=== PATIENT | male | born 1935 | race Caucasian/White ===

== ENCOUNTER 2019-06-20 13:54 | Emergency (ER) | payer OTHER, MEDICARE, BC ==
[2019-06-20 14:10] VITALS: BP 152/71; PULSE 57; RESP 18; TEMP 97.4
[2019-06-20] MEDS ORDERED: ORPHENADRINE 30 MG/ML 2 ML VIAL IM STA (14:55)
--- NOTE | 2019-06-20 15:34 | XR ---
EXAMINATION TYPE: XR chest 2V DATE OF EXAM: 06/20/2019 COMPARISON: 08/12/2015 HISTORY: Shortness of breath TECHNIQUE: Frontal and lateral views of the chest are obtained. FINDINGS: Scattered senescent parenchymal changes noted. No evidence for infiltrate. No evidence for atelectasis. Heart size is stable. Mediastinal structures are stable and grossly unremarkable. No evidence for hilar prominence. Degenerative changes dorsal spine. IMPRESSION: 1. No evidence for acute pulmonary disease.
--- NOTE | 2019-06-20 15:46 | XR ---
EXAMINATION TYPE: XR shoulder complete LT DATE OF EXAM: 06/20/2019 CLINICAL HISTORY: pain COMPARISON: NONE TECHNIQUE: Three views of the left shoulder are obtained. FINDINGS: There is no acute fracture/dislocation evident. There is moderate left AC joint arthropath y and moderate narrowing left glenohumeral joint space with associated spurring.. The visualized rib s are intact and unremarkable. IMPRESSION: 1. There is no acute fracture or dislocation. ICD 10 NO FRACTURE, INITIAL EVALUATION
--- NOTE | 2019-06-20 15:49 | XR ---
EXAMINATION TYPE: XR spine complete AP and Lat DATE OF EXAM: 06/20/2019 COMPARISON: NONE HISTORY: Pain TECHNIQUE: Three views of the cervical spine are submitted. FINDINGS: The cervical spine is visualized in its entirety from C1 thru the top of T1 level. It is s atisfactory in alignment without evidence of acute fracture or dislocation. The pre-vertebral soft t issue appears within normal limits. The C1-C2 articulation is unremarkable on the open mouth view. ACDF changes noted at C4-5 with fixation plate in place. Moderate multilevel degenerative disc space narrowing. IMPRESSION: No acute fracture or dislocation is seen in the cervical spine. Advanced degenerative ch anges and postoperative change. THORACIC SPINE 2 VIEWS. TECHNIQUE: Frontal, lateral, and swimmer's view of thoracic spine are obtained. COMPARISON: None. FINDINGS: Thoracic spine show satisfactory alignment without evidence of acute fracture or dislocatio n. Vertebral body heights are preserved. [id number] degenerative disc space narrowing and sp ondylosis. Visualized ribs are unremarkable. IMPRESSION: No acute fracture or dislocation is seen in the thoracic spine. LUMBAR SPINE X-RAY: TECHNIQUE: Three views of the lumbar spine are submitted. COMPARISON: None. FINDINGS: There are 5 lumbar type vertebral bodies identified. The lumbar spine shows satisfactory alignment without evidence of acute fracture or dislocation. Vertebral body heights are within normal limits. L3-4 through L5-S1 postoperative changes laminectomy and pedicular screws in place as well a s intervertebral body spacers. Moderate multilevel degenerative disc space narrowing. The overlying s oft tissue appears unremarkable. IMPRESSION: No acute fracture or dislocation is seen in the lumbar spine. Degenerative and postoper ative changes.ICD 10 NO FRACTURE, INITIAL EVALUATION
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
== END 2019-06-20 16:36 | disposition home or self-care (01) ==
LOC: EC 13:54
DX: S39.012A Strain of muscle, fascia and tendon of lower back, initial encounter (principal); S46.912A Strain of unspecified muscle, fascia and tendon at shoulder and upper arm level, left arm, initial encounter; E78.5 Hyperlipidemia, unspecified; I10 Essential (primary) hypertension; M19.90 Unspecified osteoarthritis, unspecified site; Z79.01 Long term (current) use of anticoagulants; Z79.82 Long term (current) use of aspirin; Z79.899 Other long term (current) drug therapy; Z96.653 Presence of artificial knee joint, bilateral; Z87.891 Personal history of nicotine dependence; V49.40XA Driver injured in collision with unspecified motor vehicles in traffic accident, initial encounter; Y92.410 Unspecified street and highway as the place of occurrence of the external cause; Y93.89 Activity, other specified; Z53.20 Procedure and treatment not carried out because of patient's decision for unspecified reasons
CPT/HCPCS: 71046; 72082; 99284

== ENCOUNTER 2023-03-08 14:14 | Inpatient (IN) | payer MEDICARE, BC ==
[2023-03-08] MEDS ORDERED: SODIUM CHLORIDE 0.9% 1,000 ML IV STA (14:42)
--- NOTE | 2023-03-08 14:43 | ED ---
Recheck HPI - General Chief Complaint: Extremity Injury, Lower Stated Complaint: Wound Care Time Seen by Provider: 03/08/23 14:28 Source: patient, EMS, RN notes reviewed, old records reviewed Mode of arrival: EMS Limitations: no limitations - History of Present Illness Initial Comments: This is a 87-year-old male to the emergency department for evaluation. Patient presents today for evaluation of lower extremity pain and swelling. Patient's been disabled for a while now. He states a couple weeks but his history is mildly unclear. Patient is also complaining of ulcers leg ulcers groin ulcer and Botox ulcer. Patient states his is having difficulty taking care of he cannot take care of himself at this point MD Complaint: wound re-check, abnormal lab -: hour(s) Returns Today for: Called Because of Abnormal Lab/Test, persistent/worsening pain related to initial visit Symptoms Since Prior Visit: worsening pain Context: planned re-check Associated Symptoms: none - Related Data Home Medications Medication Instructions Recorded Confirmed Pravastatin Sodium [Pravachol] 40 mg PO HS 08/12/15 03/08/23 ALPRAZolam [Xanax] 0.25 mg PO DAILY PRN 03/08/23 03/08/23 Krill Oil/Hyaluronic/Astaxanth 353 mg PO DAILY 03/08/23 03/08/23 [Megared Joint Care Softgel] Mv-Min/Folic/K1/Lycopen/Lutein 1 tab PO DAILY 03/08/23 03/08/23 [Centrum Silver Men Tablet] Sertraline HCl [Zoloft] 50 mg PO DAILY 03/08/23 03/08/23 Previous Rx's Medication Instructions Recorded Acetaminophen Tab [Tylenol] 650 mg PO Q4HR PRN tab 03/12/23 Enoxaparin [Lovenox] 40 mg SQ DAILY each 03/12/23 Magnesium Hydroxide [Milk of 2,400 mg PO BID PRN ml 03/12/23 Magnesia] Piperacillin-Tazobactam [Zosyn] 3.375 gm IVPB Q8HR 14 Days #42 each 03/12/23 Sennosides [Senokot] 8.6 mg PO BID tab 03/12/23 Tamsulosin [Flomax] 0.4 mg PO PC-BRKFST cap 03/12/23 atenoloL [Tenormin] 25 mg PO DAILY tab 03/12/23 Allergies Allergy/AdvReac Type Severity Reaction Status Date / Time No Known Allergies Allergy Verified 03/08/23 15:51 Review of Systems ROS Statement: Those systems with pertinent positive or pertinent negative responses have been documented in the HPI. ROS Other: All systems not noted in ROS Statement are negative. Past Medical History Past Medical History: Hyperlipidemia, Hypertension, Osteoarthritis (OA) Additional Past Medical History / Comment(s): recent fall @home, had some rib contusions, also finished antibioitc for cough & congestion recently-now resolved History of Any Multi-Drug Resistant Organisms: None Reported Past Surgical History: Back Surgery, Joint Replacement, Orthopedic Surgery Additional Past Surgical History / Comment(s): left knee replaced, arthroscopy knee, 09-05-15 TOTAL RT KNEE REPLACMENT. Past Anesthesia/Blood Transfusion Reactions: Previous Problems w/ Anesthesia, Motion Sickness Additional Past Anesthesia/Blood Transfusion Reaction / Comment(s): slow to wake up Past Psychological History: No Psychological Hx Reported Past Alcohol Use History: Daily Past Drug Use History: None Reported - Past Family History Mother Additional Family Medical History / Comment(s): AT AGE 90 FROM OLD AGE Father Family Medical History: Myocardial Infarction ([place]) Additional Family Medical History / Comment(s): AT AGE 61 FROM [place]. General Exam Limitations: no limitations General appearance: alert, in no apparent distress Head exam: Present: atraumatic, normocephalic, normal inspection Eye exam: Present: normal appearance, PERRL, EOMI. Absent: scleral icterus, conjunctival injection, periorbital swelling ENT exam: Present: normal exam, mucous membranes moist Neck exam: Present: normal inspection. Absent: tenderness, meningismus, lymp hadenopathy Respiratory exam: Present: normal lung sounds bilaterally. Absent: respiratory distress, wheezes, rales, rhonchi, stridor Cardiovascular Exam: Present: regular rate, normal rhythm, normal heart sounds. Absent: systolic murmur, diastolic murmur, rubs, gallop, clicks GI/Abdominal exam: Present: soft, normal bowel sounds. Absent: distended, tenderness, guarding, rebound, rigid Extremities exam: Present: normal inspection, full ROM, normal capillary refill, other (Significant lower extremity edema redness and cellulitis). Absent: tenderness, pedal edema, joint swelling, calf tenderness Back exam: Present: normal inspection Neurological exam: Present: alert, oriented X3, CN II-XII intact Psychiatric exam: Present: normal affect, normal mood Skin exam: Present: warm, dry, intact, normal color. Absent: rash Course Vital Signs 03/08/23 03/08/23 03/08/23 14:15 14:30 15:00 Temperature 98.5 F Pulse Rate 66 62 64 Respiratory 18 17 18 Rate Blood Pressure 166/78 166/78 152/57 O2 Sat by Pulse 97 89 L Oximetry 03/08/23 03/08/23 03/08/23 15:10 15:20 15:30 Temperature Pulse Rate 59 L 62 Respiratory 10 L 36 H 19 Rate Blood Pressure 160/93 160/93 160/93 O2 Sat by Pulse 97 83 L 100 Oximetry 03/08/23 03/08/23 03/08/23 15:40 15:50 18:36 Temperature 97.4 F L Pulse Rate 60 61 80 Respiratory 14 15 18 Rate Blood Pressure 145/56 145/56 175/78 O2 Sat by Pulse 99 90 L 94 L Oximetry 03/08/23 03/08/23 03/09/23 20:00 23:00 01:50 Temperature 98.1 F 98.2 F Pulse Rate 84 55 L 60 Respiratory 18 18 16 Rate Blood Pressure 114/62 140/58 114/65 O2 Sat by Pulse 94 L 96 98 Oximetry 03/09/23 03/09/23 03/09/23 06:03 08:16 09:06 Temperature 97.7 F Pulse Rate 58 L 62 Respiratory 16 18 Rate Blood Pressure 146/64 140/66 O2 Sat by Pulse 95 98 98 Oximetry 03/09/23 03/09/23 03/09/23 11:12 13:00 14:00 Temperature Pulse Rate 62 70 66 Respiratory 18 18 17 Rate Blood Pressure 140/56 138/53 141/69 O2 Sat by Pulse 97 97 97 Oximetry 03/09/23 03/09/23 15:00 16:40 Temperature 98.2 F Pulse Rate 66 67 Respiratory 17 18 Rate Blood Pressure 141/86 136/54 O2 Sat by Pulse 97 94 L Oximetry - Reevaluation(s) Reevaluation #1: 03/08/23 18:18 Medical record is reviewed Reevaluation #2: 03/08/23 18:18 Patient informed results questions answered Reevaluation #3: 03/08/23 18:18 Patient has no improvement in symptoms here in the ER Reevaluation #4: 03/08/23 18:18 Was pt. sent in by a medical professional or institution (COLTON Finnegan, HUMAN RESOURCES PSYCHOLOGIST, urgent care, hospital, or group home...) When possible be specific @ -no Did you speak to anyone other than the patient for history (EMS, parent, family, police, friend...)? What history was obtained from this source @ -no Did you review nursing and triage notes (agree or disagree)? Why? @ -agree Are old charts reviewed (outside hosp., previous admission, EMS record, old EKG, old radiological studies, urgent care reports/EKG's, group home records)? Report findings @ -yes Differential Diagnosis (chest pain, altered mental status, abdominal pain women, abdominal pain men, vaginal bleeding, weakness, fever, dyspnea, syncope, headache, dizziness, GI bleed, back pain, seizure, CVA, palpatations, mental health, musculoskeletal)? @ -prior EKG interpreted by me (3pts min.). @ -yes X-rays interpreted by me (1pt min.). @ -no CT interpreted by me (1pt min.). @ -no U/S interpreted by me (1pt. min.). @ -no What testing was considered but not performed or refused? (CT, X-rays, U/S, labs)? Why? @ -none What meds were considered but not given or refused? Why? @ -none Did you discuss the management of the patient with other professionals (professionals i.e. COLTON Finnegan, HUMAN RESOURCES PSYCHOLOGIST, lab, RT, psych nurse, social sciences lecturer, corporate tax manager, teacher, classifications officer cc/cm, caseworker intake)? Give summary @ -no Was smoking cessation discussed for >3mins.? @ -no Was critical care preformed (if so, how long)? @ -no Were there social determinants of health that impacted care today? How? (Homelessness, low income, unemployed, alcoholism, drug addiction, transportation, low edu. Level, literacy, decrease access to med. care, nursing home, rehab)? @ -none Was there de-escalation of care discussed even if they declined (Discuss DNR or withdrawal of care, Hospice)? DNR status @ -no What co-morbidities impacted this encounter? (DM, HTN, Smoking, COPD, CAD, Cancer, CVA, ARF, Chemo, Hep., AIDS, mental health diagnosis, sleep apnea, morbid obesity)? @ -none Was patient admitted / discharged? Hospital course, mention meds given and route, prescriptions, significant lab abnormalities, going to OR and other pertinent info. @ - 87 male to the emergency department today for evaluation. Patient is safe for evaluation regards to weakness line pain back pain and Botox pain with history of ulcer known ulcers debility and lower extremity edema and cellulitis. Patient symptoms are worsening despite wound fci and antibiotics, patient will be admitted for further evaluation supportive care Admitted Undiagnosed new problem with uncertain prognosis? @ -no Drug Therapy requiring intensive monitoring for toxicity (Heparin, Nitro, Insulin, Cardizem)? @ -no Were any procedures done? @ -no Diagnosis/symptom? @ -Bilateral lower Shorty cellulitis with ulcer Acute, or Chronic, or Acute on Chronic? @ -Acute Uncomplicated (without systemic symptoms) or Complicated (systemic symptoms)? @ -Complicated Side effects of treatment? @ -no Exacerbation, Progression, or Severe Exacerbation? @ -exacerbation Poses a threat to life or bodily function? How? (Chest pain, [place], [place], pneumonia, PE, COPD, DKA, ARF, appy, cholecystitis, CVA, Diverticulitis, Homicidal, Suicidal, threat to staff... and all critical care pts) @ -no Reevaluation #5: 03/08/23 18:18 Differential Weakness: Hypoglycemia, shock, sepsis, hyponatremia, anemia, infection, [place], ETOH, adverse medicine reaction, overdose, stroke, this is not meant to be an all-inclusive list. - Consultations Consultation #1: Spoke with [facility] who agree to admit this patient Medical Decision Making - Medical Decision Making 87 male to the emergency department today for evaluation. Patient is safe for evaluation regards to weakness line pain back pain and Botox pain with history of ulcer known ulcers debility and lower extremity edema and cellulitis. Patient symptoms are worsening despite wound fci and antibiotics, patient will be admitted for further evaluation supportive care - Lab Data Result diagrams: 03/13/23 07:36 03/13/23 07:36 Lab Results 03/08/23 03/08/23 03/08/23 Range/Units 14:44 14:44 14:44 WBC 14.1 H (3.8-10.6) k/uL RBC 3.73 L (4.30-5.90) m/uL Hgb 12.1 L (13.0-17.5) gm/dL Hct 35.3 L (39.0-53.0) % MCV 94.8 (80.0-100.0) fL MCH 32.4 (25.0-35.0) pg MCHC 34.2 (31.0-37.0) g/dL RDW 13.4 (11.5-15.5) % Plt Count 404 (150-450) k/uL MPV 8.3 Absolute Nucleated RBC % Neutrophils % 72 % Lymphocytes % 15 % Monocytes % 7 % Eosinophils % 4 % Basophils % 0 % Neutrophils # 10.2 H (1.3-7.7) k/uL Lymphocytes # 2.2 (1.0-4.8) k/uL Monocytes # 0.9 (0-1.0) k/uL Eosinophils # 0.6 (0-0.7) k/uL Basophils # 0.0 (0-0.2) k/uL NRBC/100 WBC Diff (0.00-0.01) X 10*3/uL PT 10.2 (10.0-12.5) sec INR 0.9 (<1.2) APTT 23.6 (22.0-30.0) sec Sodium 140 (137-145) mmol/L Potassium 5.2 H (3.5-5.1) mmol/L Chloride 109 H (98-107) mmol/L Carbon Dioxide 21 L (22-30) mmol/L Anion Gap 10 mmol/L BUN 90 H (9-20) mg/dL Creatinine 1.25 (0.66-1.25) mg/dL Est GFR (CKD-EPI) (>=60) Est GFR (CKD-EPI)AfAm 59 (>60 ml/min/1.73 sqM) Est GFR (CKD-EPI)NonAf 51 (>60 ml/min/1.73 sqM) BUN/Creatinine Ratio (12.00-20.00) Ratio Glucose 98 (74-99) mg/dL Plasma Lactic Acid Deshawn (0.7-2.0) mmol/L Calcium 8.9 (8.4-10.2) mg/dL Phosphorus 3.7 (2.5-4.5) mg/dL Magnesium 2.8 H (1.6-2.3) mg/dL Total Bilirubin 0.5 (0.2-1.3) mg/dL AST 26 (17-59) U/L ALT 21 (4-49) U/L Alkaline Phosphatase 60 (38-126) U/L Troponin I (0.000-0.034) ng/mL C-Reactive Protein (<1.0) mg/dL Total Protein 6.6 (6.3-8.2) g/dL Albumin 3.5 (3.5-5.0) g/dL Globulin g/dL Albumin/Globulin Ratio 03/08/23 03/08/23 03/08/23 Range/Units 14:44 14:44 14:44 WBC (3.8-10.6) k/uL RBC (4.30-5.90) m/uL Hgb (13.0-17.5) gm/dL Hct (39.0-53.0) % MCV (80.0-100.0) fL MCH (25.0-35.0) pg MCHC (31.0-37.0) g/dL RDW (11.5-15.5) % Plt Count (150-450) k/uL MPV Absolute Nucleated RBC % Neutrophils % % Lymphocytes % % Monocytes % % Eosinophils % % Basophils % % Neutrophils # (1.3-7.7) k/uL Lymphocytes # (1.0-4.8) k/uL Monocytes # (0-1.0) k/uL Eosinophils # (0-0.7) k/uL Basophils # (0-0.2) k/uL NRBC/100 WBC Diff (0.00-0.01) X 10*3/uL PT (10.0-12.5) sec INR (<1.2) APTT (22.0-30.0) sec Sodium (137-145) mmol/L Potassium (3.5-5.1) mmol/L Chloride (98-107) mmol/L Carbon Dioxide (22-30) mmol/L Anion Gap mmol/L BUN (9-20) mg/dL Creatinine (0.66-1.25) mg/dL Est GFR (CKD-EPI) (>=60) Est GFR (CKD-EPI)AfAm (>60 ml/min/1.73 sqM) Est GFR (CKD-EPI)NonAf (>60 ml/min/1.73 sqM) BUN/Creatinine Ratio (12.00-20.00) Ratio Glucose (74-99) mg/dL Plasma Lactic Acid Deshawn 1.2 (0.7-2.0) mmol/L Calcium (8.4-10.2) mg/dL Phosphorus (2.5-4.5) mg/dL Magnesium (1.6-2.3) mg/dL Total Bilirubin (0.2-1.3) mg/dL AST (17-59) U/L ALT (4-49) U/L Alkaline Phosphatase (38-126) U/L Troponin I <0.012 (0.000-0.034) ng/mL C-Reactive Protein 2.2 H (<1.0) mg/dL Total Protein (6.3-8.2) g/dL Albumin (3.5-5.0) g/dL Globulin g/dL Albumin/Globulin Ratio 03/09/23 03/09/23 03/10/23 Range/Units 07:52 08:01 06:00 WBC 10.6 13.72 H (3.8-10.6) k/uL RBC 3.40 L 3.21 L (4.30-5.90) m/uL Hgb 11.2 L 10.2 L (13.0-17.5) gm/dL Hct 33.4 L 31.9 L (39.0-53.0) % MCV 98.2 99.4 H (80.0-100.0) fL MCH 32.9 31.8 (25.0-35.0) pg MCHC 33.5 32.0 (31.0-37.0) g/dL RDW 13.1 14.2 (11.5-15.5) % Plt Count 385 349 (150-450) k/uL MPV 7.6 10.5 Absolute Nucleated RBC 0 % Neutrophils % 71 % Lymphocytes % 14 % Monocytes % 8 % Eosinophils % 6 % Basophils % 0 % Neutrophils # 7.5 (1.3-7.7) k/uL Lymphocytes # 1.4 (1.0-4.8) k/uL Monocytes # 0.8 (0-1.0) k/uL Eosinophils # 0.6 (0-0.7) k/uL Basophils # 0.0 (0-0.2) k/uL NRBC/100 WBC Diff 0 (0.00-0.01) X 10*3/uL PT (10.0-12.5) sec INR (<1.2) APTT (22.0-30.0) sec Sodium 141 (137-145) mmol/L Potassium 4.7 (3.5-5.1) mmol/L Chloride 108 H (98-107) mmol/L Carbon Dioxide 25 (22-30) mmol/L Anion Gap 8 mmol/L BUN 65 H (9-20) mg/dL Creatinine 1.11 (0.66-1.25) mg/dL Est GFR (CKD-EPI) (>=60) Est GFR (CKD-EPI)AfAm 68 (>60 ml/min/1.73 sqM) Est GFR (CKD-EPI)NonAf 59 (>60 ml/min/1.73 sqM) BUN/Creatinine Ratio (12.00-20.00) Ratio Glucose 101 H (74-99) mg/dL Plasma Lactic Acid Deshawn (0.7-2.0) mmol/L Calcium 8.5 (8.4-10.2) mg/dL Phosphorus 4.1 (2.5-4.5) mg/dL Magnesium 2.5 H (1.6-2.3) mg/dL Total Bilirubin 0.5 (0.2-1.3) mg/dL AST 21 (17-59) U/L ALT 20 (4-49) U/L Alkaline Phosphatase 52 (38-126) U/L Troponin I (0.000-0.034) ng/mL C-Reactive Protein (<1.0) mg/dL Total Protein 5.9 L (6.3-8.2) g/dL Albumin 3.0 L (3.5-5.0) g/dL Globulin 2.9 g/dL Albumin/Globulin Ratio 1.0 03/10/23 Range/Units 06:00 WBC (3.8-10.6) k/uL RBC (4.30-5.90) m/uL Hgb (13.0-17.5) gm/dL Hct (39.0-53.0) % MCV (80.0-100.0) fL MCH (25.0-35.0) pg MCHC (31.0-37.0) g/dL RDW (11.5-15.5) % Plt Count (150-450) k/uL MPV Absolute Nucleated RBC % Neutrophils % % Lymphocytes % % Monocytes % % Eosinophils % % Basophils % % Neutrophils # (1.3-7.7) k/uL Lymphocytes # (1.0-4.8) k/uL Monocytes # (0-1.0) k/uL Eosinophils # (0-0.7) k/uL Basophils # (0-0.2) k/uL NRBC/100 WBC Diff (0.00-0.01) X 10*3/uL PT (10.0-12.5) sec INR (<1.2) APTT (22.0-30.0) sec Sodium 145 (137-145) mmol/L Potassium 4.4 (3.5-5.1) mmol/L Chloride 113 H (98-107) mmol/L Carbon Dioxide 21.5 L (22-30) mmol/L Anion Gap 10.50 mmol/L BUN 44.0 H (9-20) mg/dL Creatinine 1.0 (0.66-1.25) mg/dL Est GFR (CKD-EPI) 72 (>=60) Est GFR (CKD-EPI)AfAm (>60 ml/min/1.73 sqM) Est GFR (CKD-EPI)NonAf (>60 ml/min/1.73 sqM) BUN/Creatinine Ratio 44.00 H (12.00-20.00) Ratio Glucose 98 (74-99) mg/dL Plasma Lactic Acid Deshawn (0.7-2.0) mmol/L Calcium 7.9 L (8.4-10.2) mg/dL Phosphorus (2.5-4.5) mg/dL Magnesium 2.1 (1.6-2.3) mg/dL Total Bilirubin (0.2-1.3) mg/dL AST (17-59) U/L ALT (4-49) U/L Alkaline Phosphatase (38-126) U/L Troponin I (0.000-0.034) ng/mL C-Reactive Protein (<1.0) mg/dL Total Protein (6.3-8.2) g/dL Albumin (3.5-5.0) g/dL Globulin g/dL Albumin/Globulin Ratio - EKG Data -: EKG Interpreted by Me (EKG is sinus 64 pO2 29 QRS 153 QTC 435) Disposition Clinical Impression: Bilateral lower leg cellulitis, Sacral decubitus ulcer, Debility, Weakness, Hyperkalemia, Leukocytosis Disposition: ADMITTED IP TO THIS HOSP Condition: Fair Is patient prescribed a controlled substance at d/c from ED?: No Time of Disposition: 18:10
[2023-03-08 15:18] LABS: INR 0.9 (<1.2); Partial Thromboplastin Time 23.6 sec (22.0-30.0); Prothrombin Time 10.2 sec (10.0-12.5)
[2023-03-08 15:26] LABS: ALT 21 U/L (4-49); AST 26 U/L (17-59); African American GFR (CKD) 59 (>60 ml/min/1.73 sqM); Albumin 3.5 g/dL (3.5-5.0); Alkaline Phosphatase 60 U/L (38-126); Anion Gap 10 mmol/L; Blood Urea Nitrogen 90 mg/dL (9-20); Calcium 8.9 mg/dL (8.4-10.2); Carbon Dioxide 21 mmol/L (22-30); Chloride 109 mmol/L (98-107); Glucose 98 mg/dL (74-99); Magnesium 2.8 mg/dL (1.6-2.3); Non-African American GFR(CKD) 51 (>60 ml/min/1.73 sqM); Phosphorus 3.7 mg/dL (2.5-4.5); Potassium 5.2 mmol/L (3.5-5.1); Sodium 140 mmol/L (137-145); Total Bilirubin 0.5 mg/dL (0.2-1.3); Total Protein 6.6 g/dL (6.3-8.2)
[2023-03-08 15:41] LABS: Basophils % (A) 0 %; Eosinophils # (A) 0.6 k/uL (0-0.7); Eosinophils % (A) 4 %; HCT 35.3 % (39.0-53.0); HGB 12.1 gm/dL (13.0-17.5); Lymphocytes # (A) 2.2 k/uL (1.0-4.8); Lymphocytes % (A) 15 %; MCH 32.4 pg (25.0-35.0); MCHC 34.2 g/dL (31.0-37.0); MCV 94.8 fL (80.0-100.0); Mean Platelet Volume 8.3; Monocytes # (A) 0.9 k/uL (0-1.0); Monocytes % (A) 7 %; Neutrophils # (A) 10.2 k/uL (1.3-7.7); Neutrophils % (A) 72 %; Platelet Count 404 k/uL (150-450); RBC 3.73 m/uL (4.30-5.90); RDW 13.4 % (11.5-15.5); WBC 14.1 k/uL (3.8-10.6)
[2023-03-08] MEDS ORDERED: VANCOMYCIN IV PER PHARMACY 1 EACH MISC MISCELLANE PRN (18:14)
[2023-03-08] MEDS ORDERED: VANCOMYCIN 1,750 MG in SODIUM CHLORIDE 0.9% 500 ML 500 ML IVPB STA (18:19)
[2023-03-08] MEDS ORDERED: NALOXONE 0.4 MG/ML 1 ML VIAL IV PRN (18:28)
[2023-03-08] MEDS ORDERED: MORPHINE SULFATE 4 MG/ML SYRINGE IVP STA (18:28)
[2023-03-08] MEDS ORDERED: LORazepam 2 MG/ML INJ IV STA (18:28)
[2023-03-08] MEDS ORDERED: MORPHINE SULFATE 4 MG/ML SYRINGE IV PRN (18:28)
[2023-03-08] MEDS ORDERED: LORazepam 2 MG/ML INJ IV PRN (18:28)
[2023-03-08] MEDS ORDERED: ONDANSETRON 4 MG/2 ML VIAL IVP PRN (18:28)
[2023-03-08] MEDS ORDERED: SODIUM CHLORIDE 0.9% 1,000 ML IV SCH (18:30)
[2023-03-09 09:08] LABS: Basophils % (A) 0 %; Eosinophils # (A) 0.6 k/uL (0-0.7); Eosinophils % (A) 6 %; HCT 33.4 % (39.0-53.0); HGB 11.2 gm/dL (13.0-17.5); Lymphocytes # (A) 1.4 k/uL (1.0-4.8); Lymphocytes % (A) 14 %; MCH 32.9 pg (25.0-35.0); MCHC 33.5 g/dL (31.0-37.0); MCV 98.2 fL (80.0-100.0); Mean Platelet Volume 7.6; Monocytes # (A) 0.8 k/uL (0-1.0); Monocytes % (A) 8 %; Neutrophils # (A) 7.5 k/uL (1.3-7.7); Neutrophils % (A) 71 %; Platelet Count 385 k/uL (150-450); RDW 13.1 % (11.5-15.5); WBC 10.6 k/uL (3.8-10.6)
[2023-03-09 09:20] LABS: ALT 20 U/L (4-49); AST 21 U/L (17-59); African American GFR (CKD) 68 (>60 ml/min/1.73 sqM); Alkaline Phosphatase 52 U/L (38-126); Anion Gap 8 mmol/L; Blood Urea Nitrogen 65 mg/dL (9-20); Calcium 8.5 mg/dL (8.4-10.2); Carbon Dioxide 25 mmol/L (22-30); Chloride 108 mmol/L (98-107); Globulin 2.9 g/dL; Glucose 101 mg/dL (74-99); Magnesium 2.5 mg/dL (1.6-2.3); Non-African American GFR(CKD) 59 (>60 ml/min/1.73 sqM); Phosphorus 4.1 mg/dL (2.5-4.5); Potassium 4.7 mmol/L (3.5-5.1); Sodium 141 mmol/L (137-145); Total Bilirubin 0.5 mg/dL (0.2-1.3); Total Protein 5.9 g/dL (6.3-8.2)
[2023-03-09] MEDS ORDERED: ACETAMINOPHEN TAB 325 MG TAB PO PRN (09:31)
--- NOTE | 2023-03-09 09:40 | P.HPIM ---
History of Present Illness Patient is a pleasant 87-year-old male is admitted for bilateral lower extremity cellulitis and wound infection. Patient has significant cellulitis on the right side with multiple stage II to 3 ulcers extending from the midshin albarado area involving the entire foot on the right side as well as left-sided. Patient is taking Keflex at home without any significant improvement patient was having significant pain and burning sensation. Patient functionality is poor and lives with his . Ordered wound cultures. Patient is presently on vancomycin and ceftriaxone, consulted infectious disease. Patient had elevated serum creati nine of 1.29 patient is on losartan and hydrochlorothiazide at home as well as atenolol for hypertension.. REVIEW OF SYSTEMS: CONSTITUTIONAL: No fever, no malaise, no fatigue. HEENT: No recent visual problems or hearing problems. Denied any sore throat. CARDIOVASCULAR: No chest pain, orthopnea, PND, no palpitations, no syncope. PULMONARY: No shortness of breath, no cough, no hemoptysis. GASTROINTESTINAL: No diarrhea, no nausea, no vomiting, no abdominal pain. NEUROLOGICAL: No headaches, no weakness, no numbness. HEMATOLOGICAL: Denies any bleeding or petechiae. GENITOURINARY: Denies any burning micturition, frequency, or urgency. MUSCULOSKELETAL/RHEUMATOLOGICAL: Denies any joint pain, swelling, or any muscle pain. ENDOCRINE: Denies any polyuria or polydipsia. The rest of the 14-point review of systems is negative. PHYSICAL EXAMINATION: GENERAL: The patient is alert and oriented x3, not in any acute distress. Well developed, well nourished. HEENT: Pupils are round and equally reacting to light. EOMI. No scleral icterus. No conjunctival pallor. Normocephalic, atraumatic. No pharyngeal erythema. No thyromegaly. CARDIOVASCULAR: S1 and S2 present. No murmurs, rubs, or gallops. PULMONARY: Chest is clear to auscultation, no wheezing or crackles. ABDOMEN: Soft, nontender, nondistended, normoactive bowel sounds. No palpable organomegaly. MUSCULOSKELETAL: No joint swelling or deformity. EXTREMITIES: No cyanosis, clubbing, or pedal edema. NEUROLOGICAL: Gross neurological examination did not reveal any focal deficits. SKIN: Cellulitis of the bilateral lower extremities and wounds which are infected as mentioned above Assessment and plan -Bilateral lower extending to wounds with cellulitis: Continue with present medicines vancomycin and Rocephin, infectious disease evaluation wound cultures were obtained. Discontinue morphine for pain and use Tylenol and if needed tramadol for pain. -Acute renal failure secondary to losartan and hydrochlorothiazide her report as it will be held patient was resumed on losartan as his kidney function improved. Patient will be continued on 91 more liter of IV fluids but will be switched to lactated Ringer's -Hyperlipidemia -Hypertension: Hold off on diuretic recent medications will be continued on atenolol -Generalized deconditioning: Physical therapy and occupational therapy evaluation DVT prophylaxis: Lovenox Past Medical History Past Medical History: Hyperlipidemia, Hypertension, Osteoarthritis (OA) Additional Past Medical History / Comment(s): recent fall @home, had some rib contusions, also finished antibioitc for cough & congestion recently-now resolved History of Any Multi-Drug Resistant Organisms: None Reported Past Surgical History: Back Surgery, Joint Replacement, Orthopedic Surgery Additional Past Surgical History / Comment(s): left knee replaced, arthroscopy knee, 09-05-15 TOTAL RT KNEE REPLACMENT. Past Anesthesia/Blood Transfusion Reactions: Previous Problems w/ Anesthesia, Motion Sickness Additional Past Anesthesia/Blood Transfusion Reaction / Comment(s): slow to wake up Past Psychological History: No Psychological Hx Reported Past Alcohol Use History: Daily Past Drug Use History: None Reported - Past Family History Mother Additional Family Medical History / Comment(s): AT AGE 90 FROM OLD AGE Father Family Medical History: Myocardial Infarction ([place]) Additional Family Medical History / Comment(s): AT AGE 61 FROM [place]. Medications and Allergies Home Medications Medication Instructions Recorded Confirmed Type Enalapril/Hydrochlorothiazide 1 tab PO DAILY 08/12/15 03/08/23 History [Vaseretic 5-12.5 mg] Pravastatin Sodium [Pravachol] 40 mg PO HS 08/12/15 03/08/23 History atenoloL [Tenormin] 25 mg PO BID 08/12/15 03/08/23 History ALPRAZolam [Xanax] 0.25 mg PO DAILY PRN 03/08/23 03/08/23 History Cephalexin [Keflex] 500 mg PO Q8HR 03/08/23 03/08/23 History Docusate [Colace] 100 mg PO TID 03/08/23 03/08/23 History Krill Oil/Hyaluronic/Astaxanth 353 mg PO DAILY 03/08/23 03/08/23 History [Megared Joint Care Softgel] Mv-Min/Folic/K1/Lycopen/Lutein 1 tab PO DAILY 03/08/23 03/08/23 History [Centrum Silver Men Tablet] Sertraline HCl [Zoloft] 50 mg PO DAILY 03/08/23 03/08/23 History Allergies Allergy/AdvReac Type Severity Reaction Status Date / Time No Known Allergies Allergy Verified 03/08/23 15:51 Physical Exam Vitals: Vital Signs Temp Pulse Resp BP Pulse Ox 03/09/23 09:06 97.7 F 62 18 140/66 98 03/09/23 08:16 98 03/09/23 06:03 58 L 16 146/64 95 03/09/23 01:50 60 16 114/65 98 03/08/23 23:00 98.2 F 55 L 18 140/58 96 03/08/23 20:00 98.1 F 84 18 114/62 94 L 03/08/23 18:36 97.4 F L 80 18 175/78 94 L 03/08/23 15:50 61 15 145/56 90 L 03/08/23 15:40 60 14 145/56 99 03/08/23 15:30 19 160/93 100 03/08/23 15:20 62 36 H 160/93 83 L 03/08/23 15:10 59 L 10 L 160/93 97 03/08/23 15:00 64 18 152/57 03/08/23 14:30 62 17 166/78 89 L 03/08/23 14:15 98.5 F 66 18 166/78 97 Results CBC & Chem 7: 03/09/23 07:52 03/09/23 08:01 Labs: Abnormal Lab Results - Last 24 Hours (Table) 03/08/23 03/08/23 03/08/23 Range/Units 14:44 14:44 14:44 WBC 14.1 H (3.8-10.6) k/uL RBC 3.73 L (4.30-5.90) m/uL Hgb 12.1 L (13.0-17.5) gm/dL Hct 35.3 L (39.0-53.0) % Neutrophils # 10.2 H (1.3-7.7) k/uL Potassium 5.2 H (3.5-5.1) mmol/L Chloride 109 H (98-107) mmol/L Carbon Dioxide 21 L (22-30) mmol/L BUN 90 H (9-20) mg/dL Glucose (74-99) mg/dL Magnesium 2.8 H (1.6-2.3) mg/dL C-Reactive Protein 2.2 H (<1.0) mg/dL Total Protein (6.3-8.2) g/dL Albumin (3.5-5.0) g/dL 03/09/23 03/09/23 Range/Units 07:52 08:01 WBC (3.8-10.6) k/uL RBC 3.40 L (4.30-5.90) m/uL Hgb 11.2 L (13.0-17.5) gm/dL Hct 33.4 L (39.0-53.0) % Neutrophils # (1.3-7.7) k/uL Potassium (3.5-5.1) mmol/L Chloride 108 H (98-107) mmol/L Carbon Dioxide (22-30) mmol/L BUN 65 H (9-20) mg/dL Glucose 101 H (74-99) mg/dL Magnesium 2.5 H (1.6-2.3) mg/dL C-Reactive Protein (<1.0) mg/dL Total Protein 5.9 L (6.3-8.2) g/dL Albumin 3.0 L (3.5-5.0) g/dL
[2023-03-09] MEDS ORDERED: LACTATED RINGERS 1,000 ML IV SCH (09:45)
[2023-03-09] MEDS: lisinopriL 5 MG TAB PO SCH (11:06)
[2023-03-09] MEDS: DOCUSATE 100 MG CAP PO SCH ×2 (16:05→20:36)
[2023-03-09] MEDS ORDERED: ALPRAZolam 0.25 MG TAB PO STA (17:54)
[2023-03-09] MEDS: atenoloL 25 MG TAB PO SCH (20:36)
[2023-03-09] MEDS: PRAVASTATIN SODIUM 40 MG TAB PO SCH (20:36)
[2023-03-09] MEDS: VANCOMYCIN 1,750 MG in SODIUM CHLORIDE 0.9% 500 ML 500 ML IVPB SCH (20:37)
--- NOTE | 2023-03-09 23:17 | P.CONS ---
History of Present Illness - Reason for Consult Consult date: 03/09/23 Cellulitis Requesting physician: Edyta Long - Chief Complaint Increasing swelling redness and pain to the lower extremity x few days - History of Present Illness Patient is a 87-year-old male with a past medical history significant for hypertension hyperlipidemia osteoarthritis patient was brought into the hospital yesterday afternoon for evaluation of lower extremity pain and swelling apparently the patient symptom has been going on for a few weeks and has developed ulceration to the right anterior leg and left foot area with some purulent drainage patient has been complaining of pain to the lower extremity to be more of a sharp moderate intensity without any radiation did have diffuse swelling and redness and some drainage but no foul-smelling drainage the patient has been evaluated on presentation to the hospital patient was afebrile and no fever; subsequently patient was not hypotensive hypothermic or tachycardic he did have vital of 14.1 with a left shift creatinine was 1.25, liver enzymes are normal blood cultures obtained patient was started on vancomycin and Rocephin infectious disease was consulted for further management of antibiotic therapy Review of Systems Positive point and negatives has been mentioned in the HPI, complete review of systems was performed and all other systems are negative Past Medical History Past Medical History: Hyperlipidemia, Hypertension, Osteoarthritis (OA) Additional Past Medical History / Comment(s): recent fall @home, had some rib contusions, also finished antibioitc for cough & congestion recently-now resolved History of Any Multi-Drug Resistant Organisms: None Reported Past Surgical History: Back Surgery, Joint Replacement, Orthopedic Surgery Additional Past Surgical History / Comment(s): left knee replaced, arthroscopy knee, 09-05-15 TOTAL RT KNEE REPLACMENT. Past Anesthesia/Blood Transfusion Reactions: Previous Problems w/ Anesthesia, Motion Sickness Additional Past Anesthesia/Blood Transfusion Reaction / Comm: slow to wake up Past Psychological History: No Psychological Hx Reported Past Alcohol Use History: Daily Past Drug Use History: None Reported - Past Family History Mother Additional Family Medical History / Comment(s): AT AGE 90 FROM OLD AGE Father Family Medical History: Myocardial Infarction ([place]) Additional Family Medical History / Comment(s): AT AGE 61 FROM [place]. Medications and Allergies Home Medications Medication Instructions Recorded Confirmed Type Enalapril/Hydrochlorothiazide 1 tab PO DAILY 08/12/15 03/08/23 History [Vaseretic 5-12.5 mg] Pravastatin Sodium [Pravachol] 40 mg PO HS 08/12/15 03/08/23 History atenoloL [Tenormin] 25 mg PO BID 08/12/15 03/08/23 History ALPRAZolam [Xanax] 0.25 mg PO DAILY PRN 03/08/23 03/08/23 History Cephalexin [Keflex] 500 mg PO Q8HR 03/08/23 03/08/23 History Docusate [Colace] 100 mg PO TID 03/08/23 03/08/23 History Krill Oil/Hyaluronic/Astaxanth 353 mg PO DAILY 03/08/23 03/08/23 History [Megared Joint Care Softgel] Mv-Min/Folic/K1/Lycopen/Lutein 1 tab PO DAILY 03/08/23 03/08/23 History [Centrum Silver Men Tablet] Sertraline HCl [Zoloft] 50 mg PO DAILY 03/08/23 03/08/23 History Allergies Allergy/AdvReac Type Severity Reaction Status Date / Time No Known Allergies Allergy Verified 03/08/23 15:51 Physical Exam Vitals: Vital Signs Temp Pulse Resp BP Pulse Ox 03/09/23 09:06 97.7 F 62 18 140/66 98 03/09/23 08:16 98 03/09/23 06:03 58 L 16 146/64 95 03/09/23 01:50 60 16 114/65 98 03/08/23 23:00 98.2 F 55 L 18 140/58 96 03/08/23 20:00 98.1 F 84 18 114/62 94 L 03/08/23 18:36 97.4 F L 80 18 175/78 94 L 03/08/23 15:50 61 15 145/56 90 L 03/08/23 15:40 60 14 145/56 99 03/08/23 15:30 19 160/93 100 03/08/23 15:20 62 36 H 160/93 83 L 03/08/23 15:10 59 L 10 L 160/93 97 03/08/23 15:00 64 18 152/57 03/08/23 14:30 62 17 166/78 89 L 03/08/23 14:15 98.5 F 66 18 166/78 97 GENERAL DESCRIPTION: Elderly male lying in bed, no distress. No tachypnea or accessory muscle of respiration use. HEENT: Shows Pallor , no scleral icterus. Oral mucous membrane is dry. No pharyngeal erythema or thrush NECK: Trachea central, no thyromegaly. LUNGS: Unlabored breathing. Clear to auscultation anteriorly. No wheeze or crackle. HEART: S1, S2, regular rate and rhythm. No loud murmur ABDOMEN: Soft, no tenderness , guarding or rigidity, no organomegaly EXTREMITIES: Diffuse swelling redness to bilateral lower extremity he did have a wound to the right leg with some purulent drainage was cultured SKIN: No rash, no masses palpable. Patient did have a stage II sacral pressure ulcer but no slough tissue or surrounding redness NEUROLOGICAL: The patient is awake, alert, oriented x3, mood and affect normal. Results CBC & Chem 7: 03/09/23 07:52 03/09/23 08:01 Labs: Abnormal Lab Results - Last 24 Hours (Table) 03/08/23 03/08/23 03/08/23 Range/Units 14:44 14:44 14:44 WBC 14.1 H (3.8-10.6) k/uL RBC 3.73 L (4.30-5.90) m/uL Hgb 12.1 L (13.0-17.5) gm/dL Hct 35.3 L (39.0-53.0) % Neutrophils # 10.2 H (1.3-7.7) k/uL Potassium 5.2 H (3.5-5.1) mmol/L Chloride 109 H (98-107) mmol/L Carbon Dioxide 21 L (22-30) mmol/L BUN 90 H (9-20) mg/dL Glucose (74-99) mg/dL Magnesium 2.8 H (1.6-2.3) mg/dL C-Reactive Protein 2.2 H (<1.0) mg/dL Total Protein (6.3-8.2) g/dL Albumin (3.5-5.0) g/dL 03/09/23 03/09/23 Range/Units 07:52 08:01 WBC (3.8-10.6) k/uL RBC 3.40 L (4.30-5.90) m/uL Hgb 11.2 L (13.0-17.5) gm/dL Hct 33.4 L (39.0-53.0) % Neutrophils # (1.3-7.7) k/uL Potassium (3.5-5.1) mmol/L Chloride 108 H (98-107) mmol/L Carbon Dioxide (22-30) mmol/L BUN 65 H (9-20) mg/dL Glucose 101 H (74-99) mg/dL Magnesium 2.5 H (1.6-2.3) mg/dL C-Reactive Protein (<1.0) mg/dL Total Protein 5.9 L (6.3-8.2) g/dL Albumin 3.0 L (3.5-5.0) g/dL Assessment and Plan Plan: 1patient with bilateral lower extremity cellulitis in this patient with an area of purulent drainage which has been cultured likely from gram-positive skin martin gram-negative infection less likely but not entirely excluded 2-patient did have a stage II sacral pressure ulcer but no cellulitis 3-patient new with the vancomycin pharmacy to dose while watching kidney fu nction closely and Rocephin while waiting for the culture to finalize 4-local wound care to the sacral wound with the skin protective cream and keep the area of the pressure We will follow on clinical condition and cultures to further adjust medication if needed Thank you for this consultation we will follow the patient along with you Dictation was produced using [employer] dictation software. please excuse any grammatical, word or spelling errors. Time with Patient: Greater than 30
[2023-03-10] MEDS: traMADol 50 MG TAB PO PRN (07:55)
[2023-03-10] MEDS: ENOXAPARIN 40 MG/0.4 ML SYRINGE SQ SCH (08:19)
[2023-03-10] MEDS: atenoloL 25 MG TAB PO SCH ×2 (08:19→20:28)
[2023-03-10] MEDS: SERTRALINE 50 MG TAB PO SCH (08:19)
[2023-03-10] MEDS: DOCUSATE 100 MG CAP PO SCH ×3 (08:19→20:28)
[2023-03-10] MEDS: lisinopriL 5 MG TAB PO SCH (08:21)
[2023-03-10 10:55] LABS: HCT 31.9 % (39.6-50.0); HGB 10.2 d/dL (13.0-17.0); MCH 31.8 pg (27.0-32.0); MCV 99.4 FL (80.0-97.0); Mean Platelet Volume 10.5 FL (9.5-12.2); NRBC Per 100 WBC 0 X 10*3/uL (0.00-0.01); Platelet Count 349 X 10*3/uL (140-440); RBC 3.21 X 10*6/uL (4.40-5.60); RDW 14.2 % (11.5-14.5); WBC 13.72 X 10*3/uL (4.50-10.00)
[2023-03-10 11:13] LABS: Calcium 7.9 mg/dL (8.7-10.3); Carbon Dioxide 21.5 mmol/L (21.6-31.8); Chloride 113 mmol/L (96-109); Glucose 98 mg/dL (70-110); Magnesium 2.1 mg/dL (1.5-2.4); Potassium 4.4 mmol/L (3.5-5.5); Sodium 145 mmol/L (135-145)
--- NOTE | 2023-03-10 12:28 | P.PN ---
Subjective Progress Note Date: 03/10/23 Principal diagnosis: Bilateral lower extremity cellulitis Patient is a 87-year-old male with a past medical history significant for hypertension hyperlipidemia osteoarthritis patient was brought into the hospital yesterday afternoon for evaluation of lower extremity pain and swelling that has been getting worse a few patient been diagnosed with a bilateral lower extremity cellulitis and also have a stage II sacral pressure ulcer On today's evaluation that is 03/10/2023, the patient remains to be afebrile the patient is breathing comfortably on room air, the patient denies chest pain, shortness of breath or cough, patient denies nausea/vomiting , no diarrhea and no abdominal pain, still complaining of pain to bilateral upper extremity but no worsening. Patient did have WBC 13.72 creatinine 1.0 Objective - Vital Signs Vital signs: Vital Signs Temp 98.3 F 03/10/23 07:02 Pulse 54 L 03/10/23 07:02 Resp 18 03/10/23 07:02 BP 124/65 03/10/23 07:02 Pulse Ox 95 03/10/23 07:02 FiO2 Intake & Output 03/09/23 03/10/23 03/10/23 18:59 06:59 18:59 Intake Total 75 Output Total 500 300 Balance 75 -500 -300 Weight 103.419 kg Intake: Intake, IV Titration 75 Amount Sodium Chloride 0.9% 1, 75 000 ml @ 75 mls/hr IV . [id number] [facility] Rx#:[id number] Output: Urine 500 300 Other: Voiding Method External Catheter External Catheter External Catheter - Exam GENERAL DESCRIPTION: An elderly male lying in bed in no distress RESPIRATORY SYSTEM: Unlabored breathing , decreased breath sounds at bases HEART: S1 S2 regular rate and rhythm , ABDOMEN: Soft , no tenderness EXTREMITIES: Diffuse swelling to lower extremity with some redness - Labs CBC & Chem 7: 03/10/23 06:00 03/10/23 06:00 Labs: Abnormal Lab Results - Last 24 Hours (Table) 03/10/23 03/10/23 Range/Units 06:00 06:00 WBC 13.72 H (4.50-10.00) X 10*3/uL RBC 3.21 L (4.40-5.60) X 10*6/uL Hgb 10.2 L (13.0-17.0) d/dL Hct 31.9 L (39.6-50.0) % MCV 99.4 H (80.0-97.0) FL Chloride 113 H (96-109) mmol/L Carbon Dioxide 21.5 L (21.6-31.8) mmol/L BUN 44.0 H (9.0-27.0) mg/dL BUN/Creatinine Ratio 44.00 H (12.00-20.00) Ratio Calcium 7.9 L (8.7-10.3) mg/dL Microbiology - Last 24 Hours (Table) 03/09/23 11:26 Gram Stain - Preliminary Foot - Left Wound Culture - Preliminary Gram Neg Bacilli Gram Neg Bacilli#2 Group D Enterococcus 03/08/23 14:45 Blood Culture - Preliminary Blood 03/08/23 14:30 Blood Culture - Preliminary Blood Assessment and Plan (1) Stage II pressure ulcer of sacral region Current Visit: Yes Status: Acute Code(s): L89.152 - PRESSURE ULCER OF SACRAL REGION, STAGE 2 SNOMED Code(s): 54583144392414 (2) Bilateral lower leg cellulitis Current Visit: Yes Status: Acute Code(s): L03.116 - CELLULITIS OF LEFT LOWER LIMB; L03.115 - CELLULITIS OF RIGHT LOWER LIMB SNOMED Code(s): 606613942 Plan: 1patient with bilateral lower extremity cellulitis in this patient with an area of purulent drainage which has been cultured likely from gram-positive skin martin gram-negative infection less likely but not entirely excluded 2-patient did have a stage II sacral pressure ulcer but no cellulitis 3--local wound care to the sacral wound with the skin protective cream and keep the area ofF the pressure 4-patient to continue with the vancomycin and Rocephin while waiting for the cultures to finalize Dictation was produced using [employer] dictation software. please excuse any grammatical, word or spelling errors. Time with Patient: Less than 30
[2023-03-10 13:26] VITALS: BMI 31.8
[2023-03-10] MEDS: VANCOMYCIN 1,750 MG in SODIUM CHLORIDE 0.9% 500 ML 500 ML IVPB SCH (20:28)
[2023-03-10] MEDS: PRAVASTATIN SODIUM 40 MG TAB PO SCH (20:28)
[2023-03-11 06:08] LABS: Basophils % (A) 0 %; Eosinophils # (A) 1.1 k/uL (0-0.7); Eosinophils % (A) 8 %; HCT 32.9 % (39.0-53.0); HGB 10.8 gm/dL (13.0-17.5); Lymphocytes # (A) 1.7 k/uL (1.0-4.8); Lymphocytes % (A) 13 %; MCH 32.1 pg (25.0-35.0); MCHC 32.9 g/dL (31.0-37.0); MCV 97.6 fL (80.0-100.0); Mean Platelet Volume 8.1; Monocytes # (A) 0.9 k/uL (0-1.0); Monocytes % (A) 7 %; Neutrophils # (A) 9.4 k/uL (1.3-7.7); Neutrophils % (A) 71 %; Platelet Count 355 k/uL (150-450); RBC 3.37 m/uL (4.30-5.90); RDW 13.3 % (11.5-15.5); WBC 13.3 k/uL (3.8-10.6)
[2023-03-11 06:10] LABS: African American GFR (CKD) 78 (>60 ml/min/1.73 sqM); Non-African American GFR(CKD) 67 (>60 ml/min/1.73 sqM)
[2023-03-11] MEDS ORDERED: ALPRAZolam 0.25 MG TAB PO PRN (06:35)
--- NOTE | 2023-03-11 07:13 | P.PN ---
Subjective Progress Note Date: 03/10/23 Patient is a pleasant 87-year-old male is admitted for bilateral lower extremity cellulitis and wound infection. Patient has significant cellulitis on the right side with multiple stage II to 3 ulcers extending from the midshin albarado area involving the entire foot on the right side as well as left-sided. Patient is taking Keflex at home without any significant improvement patient was having significant pain and burning sensation. Patient functionality is poor and lives with his . Ordered wound cultures. Patient is presently on vancomycin and ceftriaxone, consulted infectious disease. Patient had elevated serum creatinine of 1.29 patient is on losartan and hydrochlorothiazide at home as well as atenolol for hypertension.. 03/10/2023 Patient is seen and evaluated in follow-up maintained on IV antibiotics with infectious disease following. Patient continues to have swelling of bilateral lower extremities although significantly improved and continues with multiple wounds and maceration noted of the skin. Continue local wound care and infectious disease following waiting on finalized cultures to determine discharge and Plavix. Will have physical therapy evaluate the patient and patient will need rehab on discharge. Patient continues with significant weakness and would benefit from ECF for continued strength and mobility. Patient is currently afebrile with no reported chest pain or shortness of breath. Patient is tolerating diet and denies any nausea or vomiting. Review of systems: Constitutional: No reports of fatigue, fever, or chills Cardiovascular: No reports of chest pain or palpitations Respiratory: No reports of shortness of breath or cough GI: No reports of nausea, vomiting, or diarrhea : No reports of dysuria or retention Neurovascular: reports of weakness and continued bilateral lower extremity tenderness and swelling All medications have been reviewed PHYSICAL EXAMINATION: GENERAL: The patient is alert and oriented x3, not in any acute distress. Well developed, well nourished. Elderly-appearing, obese HEENT: Pupils are round and equally reacting to light. EOMI. No scleral icterus. No conjunctival pallor. Normocephalic, atraumatic. No pharyngeal erythema. No thyromegaly. CARDIOVASCULAR: S1 and S2 present. No murmurs, rubs, or gallops. PULMONARY: Chest is clear to auscultation, no wheezing or crackles. ABDOMEN: Soft, nontender, nondistended, normoactive bowel sounds. No palpable organomegaly. MUSCULOSKELETAL: No joint swelling or deformity. EXTREMITIES: No cyanosis, clubbing, or pedal edema. NEUROLOGICAL: Gross neurological examination did not reveal any focal deficits. Diffusely weak SKIN: Cellulitis of the bilateral lower extremities and wounds which are infected as mentioned above Assessment: -Bilateral lower extremity wounds with cellulitis, present on admission -Acute renal failure secondary to losartan and hydrochlorothiazide -Hyperlipidemia -Hypertension -Generalized deconditioning with gait dysfunction -Stage II sacral pressure ulcer, present on admission -Obesity with a BMI of 31.8 -GI prophylaxis -DVT prophylaxis: Lovenox -Full code Plan: Patient is continued on antibiotics with infectious disease following. Patient awaiting cultures to determine discharge antibiotics and may possibly require IV antibiotics on discharge Patient was evaluated by physical therapy recommending rehab and patient is agreeable case management following working on ECF Continue with local wound care bilateral lower extremities and elevating while at rest. Continue local wound care to the sacral area and frequent offloading Encouraged to increase activity as tolerated as well as oral intake Will follow-up on repeat labs Awaiting finalized cultures to discuss further with infectious disease and case management about discharge planning The impression and plan of care has been dictated by Silva Beck, Nurse Practitioner as directed. Dr. Mercedes MD I have performed a history and examination and MDM of this patient, discussed the same with the dictator, and agree with the dictator's assessment and plan as written ,documented as a scribe. Based on total visit time, I have performed more than 50% of the visit. Objective - Vital Signs Vital signs: Vital Signs Temp 98.3 F 03/10/23 07:02 Pulse 54 L 03/10/23 07:02 Resp 18 03/10/23 07:02 BP 124/65 03/10/23 07:02 Pulse Ox 95 03/10/23 07:02 FiO2 Intake & Output 03/09/23 03/10/23 03/10/23 18:59 06:59 18:59 Intake Total 75 Output Total 500 Balance 75 -500 Weight 103.419 kg Intake: Intake, IV Titration 75 Amount Sodium Chloride 0.9% 1, 75 000 ml @ 75 mls/hr IV . [id number] [facility] Rx#:[id number] Output: Urine 500 Other: Voiding Method External Catheter External Catheter - Labs CBC & Chem 7: 03/11/23 05:14 03/11/23 06:00 Labs: Microbiology - Last 24 Hours (Table) 03/09/23 11:26 Gram Stain - Preliminary Foot - Left 03/08/23 14:45 Blood Culture - Preliminary Blood 03/08/23 14:30 Blood Culture - Preliminary Blood
[2023-03-11] MEDS: lisinopriL 5 MG TAB PO SCH (08:24)
[2023-03-11] MEDS: ENOXAPARIN 40 MG/0.4 ML SYRINGE SQ SCH (08:25)
[2023-03-11] MEDS: SERTRALINE 50 MG TAB PO SCH (08:25)
[2023-03-11] MEDS: DOCUSATE 100 MG CAP PO SCH ×3 (08:25→20:39)
[2023-03-11 09:07] LABS: Blood Urea Nitrogen 38.5 mg/dL (9.0-27.0); Calcium 8.2 mg/dL (8.7-10.3); Carbon Dioxide 22.6 mmol/L (21.6-31.8); Chloride 112 mmol/L (96-109); Glucose 92 mg/dL (70-110); Potassium 4.4 mmol/L (3.5-5.5); Sodium 144 mmol/L (135-145)
[2023-03-11] MEDS: atenoloL 25 MG TAB PO SCH ×2 (09:52→20:39)
[2023-03-11] MEDS: traMADol 50 MG TAB PO PRN (09:52)
[2023-03-11] MEDS: TAMSULOSIN 0.4 MG CAP.ER.24H PO SCH (13:02)
[2023-03-11] MEDS: KETOROLAC 15 MG/ML 1 ML VIAL IVP SCH ×3 (13:35→23:58)
--- NOTE | 2023-03-11 16:15 | P.PN ---
Subjective Progress Note Date: 03/11/23 Principal diagnosis: Bilateral lower extremity cellulitis Patient is a 87-year-old male with a past medical history significant for hypertension hyperlipidemia osteoarthritis patient was brought into the hospital yesterday afternoon for evaluation of lower extremity pain and swelling that has been getting worse a few patient been diagnosed with a bilateral lower extremity cellulitis and also have a stage II sacral pressure ulcer On today's evaluation that is 03/11/2023, the patient denies any fever or any chills, the patient is breathing comfortably on room air and no need for supplemental oxygen , the patient denies chest pain or cough, patient denies abdominal pain, no nausea/vomiting and no diarrhea has been reported, the patient pain to bilateral upper extremity has slightly decreased Patient did have WBC is 13.3, creatinine 1.0 Objective - Vital Signs Vital signs: Vital Signs Temp 97.5 F L 03/11/23 13:01 Pulse 64 03/11/23 13:01 Resp 18 03/11/23 13:01 BP 137/70 03/11/23 13:01 Pulse Ox 96 03/11/23 13:01 FiO2 Intake & Output 03/10/23 03/11/23 03/11/23 18:59 06:59 18:59 Intake Total 550 Output Total 300 550 Balance 250 -550 Weight 103.419 kg Intake: Intake, IV Titration 550 Amount Vancomycin 1,750 mg In 500 Sodium Chloride 0.9% 500 ml 500 ml @ 167 mls/hr IVPB Q24H [facility] Rx#: [id number] cefTRIAXone 2 gm In 50 Sodium Chloride 0.9% 50 ml @ 100 mls/hr IVPB Q24HR [facility] Rx#:[id number] Output: Urine 300 550 Straight 550 Other: Voiding Method External Catheter External Catheter Diaper - Exam GENERAL DESCRIPTION: An elderly male lying in bed in no distress RESPIRATORY SYSTEM: Unlabored breathing , decreased breath sounds at bases HEART: S1 S2 regular rate and rhythm , ABDOMEN: Soft , no tenderness EXTREMITIES: Diffuse swelling to lower extremity with some redness - Labs CBC & Chem 7: 03/11/23 05:14 03/11/23 06:00 Labs: Abnormal Lab Results - Last 24 Hours (Table) 03/11/23 03/11/23 Range/Units 05:14 05:14 WBC 13.3 H (3.8-10.6) k/uL RBC 3.37 L (4.30-5.90) m/uL Hgb 10.8 L (13.0-17.5) gm/dL Hct 32.9 L (39.0-53.0) % Neutrophils # 9.4 H (1.3-7.7) k/uL Eosinophils # 1.1 H (0-0.7) k/uL Chloride 112 H (96-109) mmol/L BUN 38.5 H (9.0-27.0) mg/dL BUN/Creatinine Ratio 38.50 H (12.00-20.00) Ratio Calcium 8.2 L (8.7-10.3) mg/dL Microbiology - Last 24 Hours (Table) 03/09/23 11:26 Anaerobic Culture - Preliminary Foot - Left 03/09/23 11:26 Gram Stain - Final Foot - Left Wound Culture - Final Citrobacter braakii Pseudomonas aeruginosa Enterococcus faecalis 03/08/23 14:45 Blood Culture - Preliminary Blood 03/08/23 14:30 Blood Culture - Preliminary Blood Assessment and Plan (1) Stage II pressure ulcer of sacral region Current Visit: Yes Status: Acute Code(s): L89.152 - PRESSURE ULCER OF SACRAL REGION, STAGE 2 SNOMED Code(s): 79168495237901 (2) Bilateral lower leg cellulitis Current Visit: Yes Status: Acute Code(s): L03.116 - CELLULITIS OF LEFT LOWER LIMB; L03.115 - CELLULITIS OF RIGHT LOWER LIMB SNOMED Code(s): 219529215 Plan: 1patient with bilateral lower extremity cellulitis in this patient with an area of purulent drainage which has been cultured likely from gram-positive skin martni gram-negative infection less likely but not entirely excluded 2-patient did have a stage II sacral pressure ulcer but no cellulitis 3--local wound care to the sacral wound with the skin protective cream and keep the area ofF the pressure 4-patient local culture did grew Citrobacter pseudomonas and Enterococcus faecalis 5we will discontinue vancomycin and Rocephin and start the patient on Zosyn Dictation was produced using [employer] dictation software. please excuse any grammatical, word or spelling errors. Time with Patient: Less than 30
[2023-03-11] MEDS: PIPERACILLIN-TAZOBACTAM 3.375 GM in SODIUM CHLORIDE 0.9% 100 ML IVPB SCH (16:59)
[2023-03-11] MEDS ORDERED: VANCOMYCIN TROUGH DUE 1 EACH MISC MISCELLANE ONE (19:00)
--- NOTE | 2023-03-11 20:38 | P.PN ---
Subjective Progress Note Date: 03/11/23 Patient is a pleasant 87-year-old male is admitted for bilateral lower extremity cellulitis and wound infection. Patient has significant cellulitis on the right side with multiple stage II to 3 ulcers extending from the midshin albarado area involving the entire foot on the right side as well as left-sided. Patient is taking Keflex at home without any significant improvement patient was having significant pain and burning sensation. Patient functionality is poor and lives with his . Ordered wound cultures. Patient is presently on vancomycin and ceftriaxone, consulted infectious disease. Patient had elevated serum creatinine of 1.29 patient is on losartan and hydrochlorothiazide at home as well as atenolol for hypertension.. 03/10/2023 Patient is seen and evaluated in follow-up maintained on IV antibiotics with infectious disease following. Patient continues to have swelling of bilateral lower extremities although significantly improved and continues with multiple wounds and maceration noted of the skin. Continue local wound care and infectious disease following waiting on finalized cultures to determine discharge and Plavix. Will have physical therapy evaluate the patient and patient will need rehab on discharge. Patient continues with significant weakness and would benefit from ECF for continued strength and mobility. Patient is currently afebrile with no reported chest pain or shortness of breath. Patient is tolerating diet and denies any nausea or vomiting. 03/11/2023 Patient is seen and evaluated in follow-up today awaiting wound cultures with infectious disease following maintained on ceftriaxone and vancomycin. Patient to continue with local wound care and elevating the lower extremity swelling rest. Patient reports his pain is significant and will add some Toradol. Plan is for ECF and will require insurance authorization. Patient will also require a 3 night hospitalization stay according to Medicare guidelines and will be able to discharge on Wednesday. [facility] will be able to accept on Wednesday and arrangements will be 8. Patient is currently afebrile with no reports of chest pain or shortness of breath. Patient did have some mild retention will initiate Flomax and recommend straight cath. Monitor for post void residuals and is continuing to retain will insert indwelling Colmenares catheter. Review of systems: Constitutional: No reports of fatigue, fever, or chills Cardiovascular: No reports of chest pain or palpitations Respiratory: No reports of shortness of breath or cough GI: No reports of nausea, vomiting, or diarrhea : No reports of dysuria or retention Neurovascular: reports of weakness and continued bilateral lower extremity tenderness and also buttock pain All medications have been reviewed PHYSICAL EXAMINATION: GENERAL: The patient is alert and oriented x3, not in any acute distress. Well developed, well nourished. Elderly-appearing, obese HEENT: Pupils are round and equally reacting to light. EOMI. No scleral icterus. No conjunctival pallor. Normocephalic, atraumatic. No pharyngeal erythema. No thyromegaly. CARDIOVASCULAR: S1 and S2 present. No murmurs, rubs, or gallops. PULMONARY: Chest is clear to auscultation, no wheezing or crackles. ABDOMEN: Soft, nontender, nondistended, normoactive bowel sounds. No palpable organomegaly. MUSCULOSKELETAL: No joint swelling or deformity. EXTREMITIES: No cyanosis, clubbing, or pedal edema. NEUROLOGICAL: Gross neurological examination did not reveal any focal deficits. Diffusely weak SKIN: Cellulitis of the bilateral lower extremities and wounds which are infected as mentioned above Assessment: -Bilateral lower extremity wounds with cellulitis, present on admission with culture showing Citrobacter, Pseudomonas and enterococcus -Acute renal failure secondary to losartan and hydrochlorothiazide -Hyperlipidemia -Hypertension -Generalized deconditioning with gait dysfunction -Stage II sacral pressure ulcer, present on admission -Obesity with a BMI of 31.8 -GI prophylaxis -DVT prophylaxis: Lovenox -Full code Plan: Patient is continued on antibiotics with infectious disease following. Culture showing Citrobacter, Pseudomonas, enterococcus and IV antibiotics being adjusted. Patient will require IV antibiotics on discharge and will discuss further patient will require a midline for PICC line for discharge. Patient was evaluated by physical therapy recommending rehab and patient is agreeable case management following working on ECF. Patient will require 3 night hospitalization according to Medicare guidelines and unable to discharge until Wednesday Continue with local wound care bilateral lower extremities and elevating while at rest. Continue local wound care to the sacral area and frequent offloading Encouraged to increase activity as tolerated as well as oral intake Patient having some mild retention and will initiate Flomax and continue with protocol and straight cath and is continuing to retain then will insert indwelli ng Colmenares catheter. Will follow-up on repeat labs The impression and plan of care has been dictated by Silva Beck, Nurse Practitioner as directed. Dr. Mercedes MD I have performed a history and examination and MDM of this patient, discussed the same with the dictator, and agree with the dictator's assessment and plan as written ,documented as a scribe. Based on total visit time, I have performed more than 50% of the visit. Objective - Vital Signs Vital signs: Vital Signs Temp 98.1 F 03/11/23 07:39 Pulse 54 L 03/11/23 07:39 Resp 20 03/11/23 07:39 BP 122/59 03/11/23 07:39 Pulse Ox 96 03/11/23 07:39 FiO2 Intake & Output 03/10/23 03/11/23 03/11/23 18:59 06:59 18:59 Intake Total 550 Output Total 300 Balance 250 Weight 103.419 kg Intake: Intake, IV Titration 550 Amount Vancomycin 1,750 mg In 500 Sodium Chloride 0.9% 500 ml 500 ml @ 167 mls/hr IVPB Q24H [facility] Rx#: [id number] cefTRIAXone 2 gm In 50 Sodium Chloride 0.9% 50 ml @ 100 mls/hr IVPB Q24HR [facility] Rx#:[id number] Output: Urine 300 Other: Voiding Method External Catheter External Catheter - Labs CBC & Chem 7: 03/11/23 05:14 03/11/23 06:00 Labs: Abnormal Lab Results - Last 24 Hours (Table) 03/10/23 03/10/23 03/11/23 Range/Units 06:00 06:00 05:14 WBC 13.72 H 13.3 H (4.50-10.00) X 10*3/uL RBC 3.21 L 3.37 L (4.40-5.60) X 10*6/uL Hgb 10.2 L 10.8 L (13.0-17.0) d/dL Hct 31.9 L 32.9 L (39.6-50.0) % MCV 99.4 H (80.0-97.0) FL Neutrophils # 9.4 H (1.3-7.7) k/uL Eosinophils # 1.1 H (0-0.7) k/uL Chloride 113 H (96-109) mmol/L Carbon Dioxide 21.5 L (21.6-31.8) mmol/L BUN 44.0 H (9.0-27.0) mg/dL BUN/Creatinine Ratio 44.00 H (12.00-20.00) Ratio Calcium 7.9 L (8.7-10.3) mg/dL 03/11/23 Range/Units 05:14 WBC (4.50-10.00) X 10*3/uL RBC (4.40-5.60) X 10*6/uL Hgb (13.0-17.0) d/dL Hct (39.6-50.0) % MCV (80.0-97.0) FL Neutrophils # (1.3-7.7) k/uL Eosinophils # (0-0.7) k/uL Chloride 112 H (96-109) mmol/L Carbon Dioxide (21.6-31.8) mmol/L BUN 38.5 H (9.0-27.0) mg/dL BUN/Creatinine Ratio 38.50 H (12.00-20.00) Ratio Calcium 8.2 L (8.7-10.3) mg/dL Microbiology - Last 24 Hours (Table) 03/08/23 14:45 Blood Culture - Preliminary Blood 03/08/23 14:30 Blood Culture - Preliminary Blood 03/09/23 11:26 Gram Stain - Preliminary Foot - Left Wound Culture - Preliminary Gram Neg Bacilli Gram Neg Bacilli#2 Group D Enterococcus
[2023-03-11] MEDS: PRAVASTATIN SODIUM 40 MG TAB PO SCH (20:39)
[2023-03-12] MEDS: PIPERACILLIN-TAZOBACTAM 3.375 GM in SODIUM CHLORIDE 0.9% 100 ML IVPB SCH ×3 (00:10→16:10)
[2023-03-12] MEDS: ALPRAZolam 0.25 MG TAB PO PRN ×2 (04:54→17:52)
[2023-03-12] MEDS: KETOROLAC 15 MG/ML 1 ML VIAL IVP SCH ×3 (05:49→18:13)
[2023-03-12 06:07] LABS: African American GFR (CKD) 80 (>60 ml/min/1.73 sqM); Anion Gap 7 mmol/L; Blood Urea Nitrogen 31 mg/dL (9-20); Calcium 8.3 mg/dL (8.4-10.2); Carbon Dioxide 23 mmol/L (22-30); Chloride 111 mmol/L (98-107); Glucose 99 mg/dL (74-99); Non-African American GFR(CKD) 70 (>60 ml/min/1.73 sqM); Potassium 4.4 mmol/L (3.5-5.1); Sodium 141 mmol/L (137-145)
[2023-03-12 08:56] LABS: Basophils # (A) 0.06 X 10*3/uL (0.00-0.10); Basophils % (A) 0.4 %; Eosinophils # (A) 1.52 X 10*3/uL (0.04-0.35); Eosinophils % (A) 10.1 %; HCT 33.3 % (39.6-50.0); HGB 10.6 d/dL (13.0-17.0); Lymphocytes # (A) 1.74 X 10*3/uL (0.90-5.00); Lymphocytes % (A) 11.6 %; MCH 31.8 pg (27.0-32.0); MCHC 31.8 d/dL (32.0-37.0); Mean Platelet Volume 10.9 FL (9.5-12.2); Monocytes # (A) 1.34 X 10*3/uL (0.20-1.00); Monocytes % (A) 8.9 %; NRBC Per 100 WBC 0 X 10*3/uL (0.00-0.01); Neutrophils # (A) 10.33 X 10*3/uL (1.80-7.70); Neutrophils % (A) 68.5 %; Platelet Count 378 X 10*3/uL (140-440); RBC 3.33 X 10*6/uL (4.40-5.60); RDW 14.2 % (11.5-14.5); WBC 15.06 X 10*3/uL (4.50-10.00)
[2023-03-12] MEDS: lisinopriL 5 MG TAB PO SCH (09:39)
[2023-03-12] MEDS: SERTRALINE 50 MG TAB PO SCH (09:39)
[2023-03-12] MEDS: atenoloL 25 MG TAB PO SCH (09:39)
[2023-03-12] MEDS: ENOXAPARIN 40 MG/0.4 ML SYRINGE SQ SCH (09:39)
[2023-03-12] MEDS: TAMSULOSIN 0.4 MG CAP.ER.24H PO SCH (09:39)
[2023-03-12] MEDS: DOCUSATE 100 MG CAP PO SCH ×2 (09:39→16:11)
--- NOTE | 2023-03-12 16:22 | P.PN ---
Subjective Progress Note Date: 03/12/23 Principal diagnosis: Bilateral lower extremity cellulitis Patient is a 87-year-old male with a past medical history significant for hypertension hyperlipidemia osteoarthritis patient was brought into the hospital yesterday afternoon for evaluation of lower extremity pain and swelling that has been getting worse a few patient been diagnosed with a bilateral lower extremity cellulitis and also have a stage II sacral pressure ulcer On today's evaluation that is 03/12/2023, the patient remains to be afebrile the patient is breathing comfortably on room air without need for supplemental oxygen, the patient denies chest pain, shortness of breath or cough, patient den ies nausea/vomiting , no diarrhea and no abdominal pain, the patient pain to bilateral lower extremity has decreased in intensity Patient did have WBC is slightly up to 15.06 today, creatinine 0.97 Objective - Vital Signs Vital signs: Vital Signs Temp 98.3 F 03/12/23 07:52 Pulse 62 03/12/23 07:52 Resp 18 03/12/23 07:52 BP 101/59 03/12/23 07:52 Pulse Ox 95 03/12/23 07:52 FiO2 Intake & Output 03/11/23 03/12/23 03/12/23 18:59 06:59 18:59 Output Total 550 1504 Balance -550 -1504 Output: Urine 550 1000 Straight 550 Post Void Residual 504 Other: Voiding Method Diaper Diaper # Voids 1 - Exam GENERAL DESCRIPTION: An elderly male lying in bed in no distress RESPIRATORY SYSTEM: Unlabored breathing , decreased breath sounds at bases HEART: S1 S2 regular rate and rhythm , ABDOMEN: Soft , no tenderness EXTREMITIES: Diffuse swelling to lower extremity with some redness - Labs CBC & Chem 7: 03/12/23 05:45 03/12/23 05:45 Labs: Abnormal Lab Results - Last 24 Hours (Table) 03/12/23 03/12/23 Range/Units 05:45 05:45 WBC 15.06 H (4.50-10.00) X 10*3/uL RBC 3.33 L (4.40-5.60) X 10*6/uL Hgb 10.6 L (13.0-17.0) d/dL Hct 33.3 L (39.6-50.0) % MCV 100.0 H (80.0-97.0) FL MCHC 31.8 L (32.0-37.0) d/dL Neutrophils # 10.33 H (1.80-7.70) X 10*3/uL Monocytes # 1.34 H (0.20-1.00) X 10*3/uL Eosinophils # 1.52 H (0.04-0.35) X 10*3/uL Chloride 111 H (98-107) mmol/L BUN 31 H (9-20) mg/dL Calcium 8.3 L (8.4-10.2) mg/dL Microbiology - Last 24 Hours (Table) 03/08/23 14:45 Blood Culture - Preliminary Blood 03/08/23 14:30 Blood Culture - Preliminary Blood 03/09/23 11:26 Anaerobic Culture - Preliminary Foot - Left 03/09/23 11:26 Gram Stain - Final Foot - Left Wound Culture - Final Citrobacter braakii Pseudomonas aeruginosa Enterococcus faecalis Assessment and Plan (1) Stage II pressure ulcer of sacral region Current Visit: Yes Status: Acute Code(s): L89.152 - PRESSURE ULCER OF SACRAL REGION, STAGE 2 SNOMED Code(s): 18126838959595 (2) Bilateral lower leg cellulitis Current Visit: Yes Status: Acute Code(s): L03.116 - CELLULITIS OF LEFT LOWER LIMB; L03.115 - CELLULITIS OF RIGHT LOWER LIMB SNOMED Code(s): 683591551 Plan: 1patient with bilateral lower extremity cellulitis in this patient with an area of purulent drainage which has been cultured likely from gram-positive skin martin gram-negative infection less likely but not entirely excluded 2-patient did have a stage II sacral pressure ulcer but no cellulitis 3--local wound care to the sacral wound with the skin protective cream and keep the area ofF the pressure 4-patient local culture did grew Citrobacter pseudomonas and Enterococcus faecalis 5patient to continue with Zosyn, will likely need a midline for outpatient IV antibiotics and watch his white count closely Dictation was produced using [employer] dictation software. please excuse any gramma tical, word or spelling errors. Time with Patient: Less than 30
[2023-03-12] MEDS ORDERED: SODIUM CHLORIDE 0.9% 500 ML 500 ML IV ONE (18:25)
--- NOTE | 2023-03-12 19:55 | P.PN ---
Subjective Progress Note Date: 03/12/23 Patient is a pleasant 87-year-old male is admitted for bilateral lower extremity cellulitis and wound infection. Patient has significant cellulitis on the right side with multiple stage II to 3 ulcers extending from the midshin albarado area involving the entire foot on the right side as well as left-sided. Patient is taking Keflex at home without any significant improvement patient was having significant pain and burning sensation. Patient functionality is poor and lives with his . Ordered wound cultures. Patient is presently on vancomycin and ceftriaxone, consulted infectious disease. Patient had elevated serum creatinine of 1.29 patient is on losartan and hydrochlorothiazide at home as well as atenolol for hypertension.. 03/10/2023 Patient is seen and evaluated in follow-up maintained on IV antibiotics with infectious disease following. Patient continues to have swelling of bilateral lower extremities although significantly improved and continues with multiple wounds and maceration noted of the skin. Continue local wound care and infectious disease following waiting on finalized cultures to determine discharge and Plavix. Will have physical therapy evaluate the patient and patient will need rehab on discharge. Patient continues with significant weakness and would benefit from ECF for continued strength and mobility. Patient is currently afebrile with no reported chest pain or shortness of breath. Patient is tolerating diet and denies any nausea or vomiting. 03/11/2023 Patient is seen and evaluated in follow-up today awaiting wound cultures with infectious disease following maintained on ceftriaxone and vancomycin. Patient to continue with local wound care and elevating the lower extremity swelling rest. Patient reports his pain is significant and will add some Toradol. Plan is for ECF and will require insurance authorization. Patient will also require a 3 night hospitalization stay according to Medicare guidelines and will be able to discharge on Wednesday. [facility] will be able to accept on Wednesday and arrangements will be 8. Patient is currently afebrile with no reports of chest pain or shortness of breath. Patient did have some mild retention will initiate Flomax and recommend straight cath. Monitor for post void residuals and is continuing to retain will insert indwelling Colmenares catheter. 03/12/2023 Patient is seen and evaluated in follow-up today with cultures finalizing showing Citrobacter, Pseudomonas, and enterococcus with infectious disease following and will discontinue vancomycin and continue with Zosyn. White count slightly up today at 15 and will follow-up with repeat labs. Patient scheduled to have a midline today as patient will require IV antibiotics on discharge. Infectious disease recommend repeating labs in the a.m. and if trending down may be considered for discharge. Continue local wound care by Daniel wrapping bilateral lower extremities from the toes up to the knees and using nonadherent pads under the Daniel wraps. Elevate lower extremities while at rest. Patient also to be offloading of buttock area and frequent position changes. Recommend physical therapy daily. Review of systems: Constitutional: No reports of fatigue, fever, or chills Cardiovascular: No reports of chest pain or palpitations Respiratory: No reports of shortness of breath or cough GI: No reports of nausea, vomiting, or diarrhea : No reports of dysuria or retention Neurovascular: reports of weakness and continued bilateral lower extremity tenderness and also buttock pain All medications have been reviewed PHYSICAL EXAMINATION: GENERAL: The patient is alert and oriented x3, not in any acute distress. Well developed, well nourished. Elderly-appearing, obese HEENT: Pupils are round and equally reacting to light. EOMI. No scleral icterus. No conjunctival pallor. Normocephalic, atraumatic. No pharyngeal erythema. No thyromegaly. CARDIOVASCULAR: S1 and S2 present. No murmurs, rubs, or gallops. PULMONARY: Chest is clear to auscultation, no wheezing or crackles. ABDOMEN: Soft, nontender, nondistended, normoactive bowel sounds. No palpable organomegaly. MUSCULOSKELETAL: No joint swelling or deformity. EXTREMITIES: No cyanosis, clubbing, or pedal edema. NEUROLOGICAL: Gross neurological examination did not reveal any focal deficits. Diffusely weak SKIN: Cellulitis of the bilateral lower extremities and wounds which are infected as mentioned above, some continued swelling of bilateral lower extremities with improvement in the swelling noted Assessment: -Bilateral lower extremity wounds with cellulitis, present on admission with culture showing Citrobacter, Pseudomonas and enterococcus -Acute renal failure secondary to losartan and hydrochlorothiazide -Hyperlipidemia -Hypertension, currently blood pressures are on the lower side and will discontinue lisinopril and make atenolol once daily -Generalized deconditioning with gait dysfunction -Stage II sacral pressure ulcer, present on admission -Obesity with a BMI of 31.8 -GI prophylaxis -DVT prophylaxis: Lovenox -Full code Plan: Patient is continued on antibiotics with infectious disease following. Culture showing Citrobacter, Pseudomonas, enterococcus and IV antibiotics being changed to Zosyn and patient received a midline today. Patient will require IV antibiotics on discharge. White count slightly elevated today and infectious disease recommend monitoring overnight and repeat labs and if trending down, would continue on close outpatient follow-up along with IV Zosyn for 2 week course. Patient to continue with local wound care of lower extremities by applying nonadherent dressings as well as Daniel wraps from the toes up to the knees and elevating well at rest. Patient was evaluated by physical therapy recommending rehab and patient is agreeable case management following working on ECF. Patient will require 3 night hospitalization according to Medicare guidelines and unable to discharge until Wednesday03/12/2023. Continue frequent offloading of the buttock area and frequent position changes Encouraged to increase activity as tolerated as well as oral intake Patient is having some urinary retention requiring indwelling Colmenares catheter. Continue Flomax and patient will need outpatient follow-up with trial void and urology. Likely secondary to some constipation and continued weakness with inability to ambulate. Continue bowel regimen as well. Will follow-up on repeat labs Possible discharge to [facility] in 24 hours if WBC is trending down. The impression and plan of care has been dictated by Silva Beck, Nurse Practitioner as directed. Dr. Mercedes MD I have performed a history and examination and MDM of this patient, discussed the same with the dictator, and agree with the dictator's assessment and plan as written ,documented as a scribe. Based on total visit time, I have performed more than 50% of the visit. Objective - Vital Signs Vital signs: Vital Signs Temp 98.1 F 03/12/23 12:53 Pulse 56 L 03/12/23 12:53 Resp 18 03/12/23 12:53 BP 95/51 03/12/23 12:53 Pulse Ox 94 L 03/12/23 12:53 FiO2 Intake & Output 03/12/23 03/12/23 03/13/23 06:59 18:59 06:59 Output Total 1504 300 Balance -1504 -300 Weight 103.419 kg Output: Urine 1000 300 Uretheral (Colmenares) 150 Post Void Residual 504 Other: Voiding Method Diaper - Labs CBC & Chem 7: 03/12/23 05:45 03/12/23 05:45 Labs: Abnormal Lab Results - Last 24 Hours (Table) 03/12/23 03/12/23 Range/Units 05:45 05:45 WBC 15.06 H (4.50-10.00) X 10*3/uL RBC 3.33 L (4.40-5.60) X 10*6/uL Hgb 10.6 L (13.0-17.0) d/dL Hct 33.3 L (39.6-50.0) % MCV 100.0 H (80.0-97.0) FL MCHC 31.8 L (32.0-37.0) d/dL Neutrophils # 10.33 H (1.80-7.70) X 10*3/uL Monocytes # 1.34 H (0.20-1.00) X 10*3/uL Eosinophils # 1.52 H (0.04-0.35) X 10*3/uL Chloride 111 H (98-107) mmol/L BUN 31 H (9-20) mg/dL Calcium 8.3 L (8.4-10.2) mg/dL Microbiology - Last 24 Hours (Table) 03/08/23 14:45 Blood Culture - Preliminary Blood 03/08/23 14:30 Blood Culture - Preliminary Blood
[2023-03-12] MEDS ORDERED: MAGNESIUM HYDROXIDE 2,400 MG/30 ML CUP PO PRN (20:05)
[2023-03-12] MEDS: SODIUM CHLORIDE 0.9% 1,000 ML IV SCH (21:25)
[2023-03-12] MEDS: SENNOSIDES 8.6 MG TAB PO SCH (21:26)
[2023-03-12] MEDS: PRAVASTATIN SODIUM 40 MG TAB PO SCH (21:26)
[2023-03-13] MEDS: KETOROLAC 15 MG/ML 1 ML VIAL IVP SCH ×4 (00:04→18:10)
[2023-03-13] MEDS: PIPERACILLIN-TAZOBACTAM 3.375 GM in SODIUM CHLORIDE 0.9% 100 ML IVPB SCH ×3 (00:07→17:28)
[2023-03-13] MEDS: ENOXAPARIN 40 MG/0.4 ML SYRINGE SQ SCH (08:40)
[2023-03-13] MEDS: TAMSULOSIN 0.4 MG CAP.ER.24H PO SCH (08:41)
[2023-03-13] MEDS: SERTRALINE 50 MG TAB PO SCH (08:41)
[2023-03-13] MEDS: SENNOSIDES 8.6 MG TAB PO SCH ×2 (08:41→20:37)
[2023-03-13] MEDS: atenoloL 25 MG TAB PO SCH (08:41)
[2023-03-13 08:46] LABS: Basophils % (A) 0 %; Eosinophils # (A) 1.2 k/uL (0-0.7); Eosinophils % (A) 9 %; HCT 30.3 % (39.0-53.0); HGB 9.9 gm/dL (13.0-17.5); Lymphocytes # (A) 1.6 k/uL (1.0-4.8); Lymphocytes % (A) 11 %; MCH 32.1 pg (25.0-35.0); MCHC 32.8 g/dL (31.0-37.0); MCV 97.9 fL (80.0-100.0); Monocytes # (A) 0.9 k/uL (0-1.0); Monocytes % (A) 6 %; Neutrophils % (A) 72 %; Platelet Count 333 k/uL (150-450); RBC 3.09 m/uL (4.30-5.90); RDW 13.2 % (11.5-15.5); WBC 13.8 k/uL (3.8-10.6)
[2023-03-13 09:00] LABS: African American GFR (CKD) 71 (>60 ml/min/1.73 sqM); Anion Gap 7 mmol/L; Blood Urea Nitrogen 37 mg/dL (9-20); Calcium 7.9 mg/dL (8.4-10.2); Carbon Dioxide 21 mmol/L (22-30); Chloride 112 mmol/L (98-107); Glucose 102 mg/dL (74-99); Non-African American GFR(CKD) 62 (>60 ml/min/1.73 sqM); Potassium 4.2 mmol/L (3.5-5.1); Sodium 140 mmol/L (137-145)
--- NOTE | 2023-03-13 12:05 | P.DS ---
Providers Date of admission: 03/10/23 07:50 Attending physician: Deuce Barney Consults: 03/09/23 09:31 Consult Physician Routine Consulting Provider: Terry Brown Consult Reason/Comments: cellulitis Do you want consulting provider notified?: Yes [facility] Course: Final Diagnosis -Bilateral lower extremity wounds with cellulitis, present on admission with culture showing Citrobacter, Pseudomonas and enterococcus -Acute renal failure secondary to losartan and hydrochlorothiazide resolved -Hyperlipidemia -Hypertension, currently blood pressures are on the lower side and will discontinue lisinopril and make atenolol once daily -Generalized deconditioning with gait dysfunction -Stage II sacral pressure ulcer, present on admission -Obesity with a BMI of 31.8 -GI prophylaxis -DVT prophylaxis: Lovenox -Full code Discharge Disposition Patient is stable for discharge to [facility] rehab. Patient has received a midline and will Continue antibiotic therapy in the form of IV Zosyn every 8 hours for 2 weeks per ID recommendations and close outpatient follow-up with infectious disease. Continue local wound care to lower extremities by Daniel wrapping from the toes up to the knees. Encouraged elevating lower extremities while at rest. Continue with offloading frequently of the buttock area and position changes every 2 hours. Continue with indwelling Colmenares catheter and trial void in the outpatient setting once more mobile and consider urology follow-up outpatient. Continue Flomax. Repeat labs in 2-3 days of CBC, BMP, magnesium. Follow-up with primary care provider on discharge. Hospital Course Patient is a pleasant 87-year-old male is admitted for bilateral lower extremity cellulitis and wound infection. Has a past medical history of hypertension, hy perlipidemia. Patient has significant cellulitis on the right side with multiple stage II to 3 ulcers extending from the midshin area involving the entire foot on the right side as well as left-sided. Patient is taking Keflex at home without any significant improvement patient was having significant pain and burning sensation. Patient functionality is poor and lives with his . Patient was admitted to the hospital with consult placed to ID and wound cultures. Patient was started on vancomycin and ceftriaxone. Patient had elevated serum creatinine of 1.29 patient is on losartan and hydrochlorothiazide at home as well as atenolol for hypertension. Medications were adjusted as above. The wound cultures reveal citrobacter braakii, pseudomonas aureginosa, enterococcus faecalis. ID had recommended a course of IV zosyn on discharge for 2 weeks and patient received a midline for IV access. Most recent labs showing white count of 13.8, hgb 9.9, BUN 37, creatinine 1.07. Patient denies chest pain, denies shortness of breath, no nausea vomiting or diarrhea. His lungs are clear. He does continue with significant lower extremity edema and he has DANIEL wrap dressings in place to the lower extremities. with the medication changes his blood pressure is 112/57, he is afebrile, 94% on room air. He will be discharge to rehab. Please see medication reconciliation for a list of current medications. Thank you for allowing us to participate in the care of this patient. The impression and plan of care has been dictated by Radha Raygoza, Nurse Practitioner as directed. Dr. Mercedes MD I have performed a history and physical examination and medical decision making of this patient, discussed the same with the dictator, and agree with the dictators assessment and plan as written, documented as a scribe. Based on total visit time, I have performed more than 50% of this visit. Patient Condition at Discharge: Fair Plan - Discharge Summary Discharge Rx Participant: No New Discharge Prescriptions: New atenoloL [Tenormin] 25 mg PO DAILY tab Acetaminophen Tab [Tylenol] 650 mg PO Q4HR PRN tab PRN Reason: Fever And/ Or Pain Sennosides [Senokot] 8.6 mg PO BID tab Tamsulosin [Flomax] 0.4 mg PO PC-BRKFST cap Enoxaparin [Lovenox] 40 mg SQ DAILY each Piperacillin-Tazobactam [Zosyn] 3.375 gm IVPB Q8HR 14 Days #42 each Magnesium Hydroxide [Milk of Magnesia] 2,400 mg PO BID PRN ml PRN Reason: Constipation Continue Pravastatin Sodium [Pravachol] 40 mg PO HS Krill Oil/Hyaluronic/Astaxanth [Megared Joint Care Softgel] 353 mg PO DAILY ALPRAZolam [Xanax] 0.25 mg PO DAILY PRN PRN Reason: Anxiety Sertraline HCl [Zoloft] 50 mg PO DAILY Mv-Min/Folic/K1/Lycopen/Lutein [Centrum Silver Men Tablet] 1 tab PO DAILY Discontinued Enalapril/Hydrochlorothiazide [Vaseretic 5-12.5 mg] 1 tab PO DAILY atenoloL [Tenormin] 25 mg PO BID Docusate [Colace] 100 mg PO TID Cephalexin [Keflex] 500 mg PO Q8HR Discharge Medication List Pravastatin Sodium [Pravachol] 40 mg PO HS 08/12/15 [History] ALPRAZolam [Xanax] 0.25 mg PO DAILY PRN 03/08/23 [History] Krill Oil/Hyaluronic/Astaxanth [Megared Joint Care Softgel] 353 mg PO DAILY 03/08/23 [History] Mv-Min/Folic/K1/Lycopen/Lutein [Centrum Silver Men Tablet] 1 tab PO DAILY 03/08/23 [History] Sertraline HCl [Zoloft] 50 mg PO DAILY 03/08/23 [History] Acetaminophen Tab [Tylenol] 650 mg PO Q4HR PRN tab 03/12/23 [Rx] Enoxaparin [Lovenox] 40 mg SQ DAILY each 03/12/23 [Rx] Magnesium Hydroxide [Milk of Magnesia] 2,400 mg PO BID PRN ml 03/12/23 [Rx] Piperacillin-Tazobactam [Zosyn] 3.375 gm IVPB Q8HR 14 Days #42 each 03/12/23 [Rx] Sennosides [Senokot] 8.6 mg PO BID tab 03/12/23 [Rx] Tamsulosin [Flomax] 0.4 mg PO PC-BRKFST cap 03/12/23 [Rx] atenoloL [Tenormin] 25 mg PO DAILY tab 03/12/23 [Rx] Follow up Appointment(s)/Referral(s): Terry Brown MD [STAFF PHYSICIAN] - 1 Week Walt Garcia MD [Primary Care Provider] - 1-2 days Ambulatory/Diagnostic Orders: Complete Blood Count w/diff [LAB.AMB] Time Frame: 2 Days, Location: None Selected Activity/Diet/Wound Care/Special Instructions: Patient will be going to [facility] on discharge Activity as tolerated Patient has received a midline and will Continue antibiotic therapy in the form of IV Zosyn every 8 hours for 2 weeks per ID recommendations and close outpatient follow-up with infectious disease Continue local wound care to lower extremities by Daniel wrapping from the toes up to the knees Encouraged elevating lower extremities while at rest Continue with offloading frequently of the buttock area and position changes every 2 hours Follow-up with primary care provider on discharge Repeat labs in 2-3 days of CBC, BMP, magnesium Continue with indwelling Colmenares catheter and trial void in the outpatient setting once more mobile and consider urology follow-up outpatient. Continue Flomax Discharge Disposition: TRANSFER TO SNF/ECF
[2023-03-13] MEDS: PRAVASTATIN SODIUM 40 MG TAB PO SCH (20:37)
[2023-03-13] MEDS: SODIUM CHLORIDE 0.9% 1,000 ML IV SCH (20:45)
[2023-03-13] MEDS: ALPRAZolam 0.25 MG TAB PO PRN (20:49)
[2023-03-14] MEDS: KETOROLAC 15 MG/ML 1 ML VIAL IVP SCH ×4 (00:04→19:44)
[2023-03-14] MEDS: PIPERACILLIN-TAZOBACTAM 3.375 GM in SODIUM CHLORIDE 0.9% 100 ML IVPB SCH ×3 (00:09→16:51)
[2023-03-14] MEDS: SENNOSIDES 8.6 MG TAB PO SCH ×2 (07:57→21:04)
[2023-03-14] MEDS: atenoloL 25 MG TAB PO SCH (07:57)
[2023-03-14] MEDS: TAMSULOSIN 0.4 MG CAP.ER.24H PO SCH (07:58)
[2023-03-14] MEDS: ENOXAPARIN 40 MG/0.4 ML SYRINGE SQ SCH (07:58)
[2023-03-14] MEDS: SERTRALINE 50 MG TAB PO SCH (07:58)
--- NOTE | 2023-03-14 14:37 | P.PN ---
Subjective Progress Note Date: 03/13/23 Principal diagnosis: Bilateral lower extremity cellulitis Patient is a 87-year-old male with a past medical history significant for hypertension hyperlipidemia osteoarthritis patient was brought into the hospital yesterday afternoon for evaluation of lower extremity pain and swelling that has been getting worse a few patient been diagnosed with a bilateral lower extremity cellulitis and also have a stage II sacral pressure ulcer On today's evaluation that is 03/13/2023, the patient denies any fever or any chills, the patient is breathing comfortably on room air , the patient denies chest pain, shortness of breath and no significant cough, patient denies abdomi nal pain, no nausea/vomiting or diarrhea, the patient pain to bilateral lower extremity has decreased in intensity Patient did have WBC is down to 13.8, creatinine is 1.07 Objective - Vital Signs Vital signs: Vital Signs Temp 98.5 F 03/13/23 01:28 Pulse 63 03/13/23 06:51 Resp 16 03/13/23 06:51 BP 151/72 03/13/23 06:51 Pulse Ox 95 03/13/23 06:51 FiO2 Intake & Output 03/12/23 03/13/23 03/13/23 18:59 06:59 18:59 Output Total 300 400 Balance -300 -400 Weight 103.419 kg Output: Urine 300 400 Uretheral (Colmenares) 150 Other: Voiding Method Indwelling Catheter - Exam GENERAL DESCRIPTION: An elderly male lying in bed in no distress RESPIRATORY SYSTEM: Unlabored breathing , decreased breath sounds at bases HEART: S1 S2 regular rate and rhythm , ABDOMEN: Soft , no tenderness EXTREMITIES: Bilateral lower extremity currently wrapped in Daniel wrap - Labs CBC & Chem 7: 03/13/23 07:36 03/13/23 07:36 Labs: Abnormal Lab Results - Last 24 Hours (Table) 03/13/23 03/13/23 Range/Units 07:36 07:36 WBC 13.8 H (3.8-10.6) k/uL RBC 3.09 L (4.30-5.90) m/uL Hgb 9.9 L (13.0-17.5) gm/dL Hct 30.3 L (39.0-53.0) % Neutrophils # 10.0 H (1.3-7.7) k/uL Eosinophils # 1.2 H (0-0.7) k/uL Chloride 112 H (98-107) mmol/L Carbon Dioxide 21 L (22-30) mmol/L BUN 37 H (9-20) mg/dL Glucose 102 H (74-99) mg/dL Calcium 7.9 L (8.4-10.2) mg/dL Assessment and Plan (1) Stage II pressure ulcer of sacral region Current Visit: Yes Status: Acute Code(s): L89.152 - PRESSURE ULCER OF SACRAL REGION, STAGE 2 SNOMED Code(s): 57794077437843 (2) Bilateral lower leg cellulitis Current Visit: Yes Status: Acute Code(s): L03.116 - CELLULITIS OF LEFT LOWER LIMB; L03.115 - CELLULITIS OF RIGHT LOWER LIMB SNOMED Code(s): 906838925 Plan: 1patient with bilateral lower extremity cellulitis in this patient with an area of purulent drainage which has been cultured likely from gram-positive skin martin gram-negative infection less likely but not entirely excluded 2-patient did have a stage II sacral pressure ulcer but no cellulitis 3--local wound care to the sacral wound with the skin protective cream and keep the area off the pressure 4-patient local culture did grew Citrobacter pseudomonas and Enterococcus faecalis 5patient has shown clinical improvement and will continue with Zosyn, Dictation was produced using [email or web address] dictation software. please excuse any grammatical, word or spelling errors. Time with Patient: Less than 30
--- NOTE | 2023-03-14 14:38 | P.PN ---
Subjective Progress Note Date: 03/14/23 Principal diagnosis: Bilateral lower extremity cellulitis Patient is a 87-year-old male with a past medical history significant for hypertension hyperlipidemia osteoarthritis patient was brought into the hospital yesterday afternoon for evaluation of lower extremity pain and swelling that has been getting worse a few patient been diagnosed with a bilateral lower extremity cellulitis and also have a stage II sacral pressure ulcer On today's evaluation that is 03/14/2023, the patient remains to be afebrile, the patient is breathing comfortably on room air without the need for supplemental oxygen , the patient denies chest pain or cough, patient denies nausea/vomiting or diarrhea and denies any abdominal pain, the patient pain to bilateral lower extremity has decreased in intensity, no new symptoms Patient did have WBC is down to 13.8, creatinine is 1.07 as of yesterday no laboratory today Objective - Vital Signs Vital signs: Vital Signs Temp 98.6 F 03/14/23 00:50 Pulse 65 03/14/23 07:34 Resp 16 03/14/23 07:34 BP 172/77 03/14/23 07:34 Pulse Ox 95 03/14/23 07:34 FiO2 Intake & Output 03/13/23 03/14/23 03/14/23 18:59 06:59 18:59 Output Total 520 Balance -520 Output: Urine 520 Other: Voiding Method Indwelling Catheter Indwelling Catheter Indwelling Catheter # Voids 300 # Bowel Movements 1 - Exam GENERAL DESCRIPTION: An elderly male lying in bed in no distress RESPIRATORY SYSTEM: Unlabored breathing , decreased breath sounds at bases HEART: S1 S2 regular rate and rhythm , ABDOMEN: Soft , no tenderness EXTREMITIES: Bilateral lower extremity currently wrapped in Daniel wrap - Labs CBC & Chem 7: 03/13/23 07:36 03/13/23 07:36 Labs: Microbiology - Last 24 Hours (Table) 03/08/23 14:45 Blood Culture - Final Blood 03/08/23 14:30 Blood Culture - Final Blood 03/09/23 11:26 Anaerobic Culture - Final Foot - Left Assessment and Plan (1) Stage II pressure ulcer of sacral region Current Visit: Yes Status: Acute Code(s): L89.152 - PRESSURE ULCER OF SACRAL REGION, STAGE 2 SNOMED Code(s): 05574425266881 (2) Bilateral lower leg cellulitis Current Visit: Yes Status: Acute Code(s): L03.116 - CELLULITIS OF LEFT LOWER LIMB; L03.115 - CELLULITIS OF RIGHT LOWER LIMB SNOMED Code(s): 909561813 Plan: 1patient with bilateral lower extremity cellulitis in this patient with an area of purulent drainage which has been cultured likely from gram-positive skin martin gram-negative infection less likely but not entirely excluded 2-patient did have a stage II sacral pressure ulcer but no cellulitis 3--local wound care to the sacral wound with the skin protective cream and keep the area off the pressure 4-patient local culture did grew Citrobacter pseudomonas and Enterococcus faecalis 5patient has shown clinical improvement and will continue with Zosyn 10 days on discharge currently waiting for rehab authorization by insurance, Dictation was produced using [employer] dictation software. please excuse any grammatical, word or spelling errors. Time with Patient: Less than 30
[2023-03-14] MEDS: SODIUM CHLORIDE 0.9% 1,000 ML IV SCH (19:30)
[2023-03-14] MEDS: PRAVASTATIN SODIUM 40 MG TAB PO SCH (21:04)
[2023-03-14] MEDS: ALPRAZolam 0.25 MG TAB PO PRN (21:04)
--- NOTE | 2023-03-14 22:13 | P.PN ---
Subjective Progress Note Date: 03/14/23 Patient is a pleasant 87-year-old male is admitted for bilateral lower extremity cellulitis and wound infection. Patient has significant cellulitis on the right side with multiple stage II to 3 ulcers extending from the midshin albarado area involving the entire foot on the right side as well as left-sided. Patient is taking Keflex at home without any significant improvement patient was having significant pain and burning sensation. Patient functionality is poor and lives with his . Ordered wound cultures. Patient is presently on vancomycin and ceftriaxone, consulted infectious disease. Patient had elevated serum creatinine of 1.29 patient is on losartan and hydrochlorothiazide at home as we ll as atenolol for hypertension.. 03/10/2023 Patient is seen and evaluated in follow-up maintained on IV antibiotics with infectious disease following. Patient continues to have swelling of bilateral lower extremities although significantly improved and continues with multiple wounds and maceration noted of the skin. Continue local wound care and infectious disease following waiting on finalized cultures to determine discharge and Plavix. Will have physical therapy evaluate the patient and patient will need rehab on discharge. Patient continues with significant weakness and would benefit from ECF for continued strength and mobility. Patient is currently afebrile with no reported chest pain or shortness of breath. Patient is tolerating diet and denies any nausea or vomiting. 03/11/2023 Patient is seen and evaluated in follow-up today awaiting wound cultures with infectious disease following maintained on ceftriaxone and vancomycin. Patient to continue with local wound care and elevating the lower extremity swelling rest. Patient reports his pain is significant and will add some Toradol. Plan is for ECF and will require insurance authorization. Patient will also require a 3 night hospitalization stay according to Medicare guidelines and will be able to discharge on Wednesday. [facility] will be able to accept on Wednesday and arrangements will be 8. Patient is currently afebrile with no reports of chest pain or shortness of breath. Patient did have some mild retention will initiate Flomax and recommend straight cath. Monitor for post void residuals and is continuing to retain will insert indwelling Colmenares catheter. 03/12/2023 Patient is seen and evaluated in follow-up today with cultures finalizing showing Citrobacter, Pseudomonas, and enterococcus with infectious disease following and will discontinue vancomycin and continue with Zosyn. White count slightly up today at 15 and will follow-up with repeat labs. Patient scheduled to have a midline today as patient will require IV antibiotics on discharge. Infectious disease recommend repeating labs in the a.m. and if trending down may be considered for discharge. Continue local wound care by Daniel wrapping bilateral lower extremities from the toes up to the knees and using nonadherent pads under the Daniel wraps. Elevate lower extremities while at rest. Patient also to be offloading of buttock area and frequent position changes. Recommend physical therapy daily. 03/14/2023 Patient has been evaluated resting in bed. Continues on IV zosyn with plans for 2 weeks of IV antibiotics on discharge Pending authorization for ECF which was not obtained on Wednesday patient will be discharged likely on Wednesday. Patient has no acute complaints. Hemodynamically he is stable. Review of systems: Constitutional: No reports of fatigue, fever, or chills Cardiovascular: No reports of chest pain or palpitations Respiratory: No reports of shortness of breath or cough GI: No reports of nausea, vomiting, or diarrhea : No reports of dysuria or retention Neurovascular: reports of weakness and continued bilateral lower extremity tenderness and also buttock pain All medications have been reviewed PHYSICAL EXAMINATION: GENERAL: The patient is alert and oriented x3, not in any acute distress. Well developed, well nourished. Elderly-appearing, obese HEENT: Pupils are round and equally reacting to light. EOMI. No scleral icterus. No conjunctival pallor. Normocephalic, atraumatic. No pharyngeal erythema. No thyromegaly. CARDIOVASCULAR: S1 and S2 present. No murmurs, rubs, or gallops. PULMONARY: Chest is clear to auscultation, no wheezing or crackles. ABDOMEN: Soft, nontender, nondistended, normoactive bowel sounds. No palpable organomegaly. MUSCULOSKELETAL: No joint swelling or deformity. EXTREMITIES: No cyanosis, clubbing, or pedal edema. NEUROLOGICAL: Gross neurological examination did not reveal any focal deficits. Diffusely weak SKIN: Cellulitis of the bilateral lower extremities and wounds which are infected as mentioned above, some continued swelling of bilateral lower extremit ies with improvement in the swelling noted Assessment: -Bilateral lower extremity wounds with cellulitis, present on admission with culture showing Citrobacter, Pseudomonas and enterococcus -Acute renal failure secondary to losartan and hydrochlorothiazide -Hyperlipidemia -Hypertension, currently blood pressures are on the lower side and will discontinue lisinopril and make atenolol once daily -Generalized deconditioning with gait dysfunction -Stage II sacral pressure ulcer, present on admission -Obesity with a BMI of 31.8 -GI prophylaxis -DVT prophylaxis: Lovenox -Full code Plan: Patient is continued on antibiotics with infectious disease following. Culture showing Citrobacter, Pseudomonas, enterococcus and IV antibiotics being changed to Zosyn and patient received a midline today. Patient will require IV antibiotics on discharge. White count slightly elevated today and infectious disease recommend monitoring overnight and repeat labs and if trending down, would continue on close outpatient follow-up along with IV Zosyn for 2 week course. Patient to continue with local wound care of lower extremities by applying nonadherent dressings as well as Daniel wraps from the toes up to the knees and elevating well at rest. Patient was evaluated by physical therapy recommending rehab and patient is agreeable case management following working on ECF. Patient will require 3 night hospitalization according to Medicare guidelines and unable to discharge until Wednesday03/12/2023 - there was no auth and DC postponed until Wednesday03/15/23 Continue frequent offloading of the buttock area and frequent position changes Encouraged to increase activity as tolerated as well as oral intake Patient is having some urinary retention requiring indwelling Colmenares catheter. Continue Flomax and patient will need outpatient follow-up with trial void and urology. Likely secondary to some constipation and continued weakness with inability to ambulate. Continue bowel regimen as well. The impression and plan of care has been dictated by Radha Raygoza Nurse Practitioner as directed. Dr. Mercedes MD I have performed a history and physical examination and medical decision making of this patient, discussed the same with the dictator, and agree with the dictators assessment and plan as written, documented as a scribe. Based on total visit time, I have performed more than 50% of this visit. Objective - Vital Signs Vital signs: Vital Signs Temp 98.0 F 03/14/23 14:04 Pulse 63 03/14/23 14:04 Resp 18 03/14/23 14:04 BP 113/64 03/14/23 14:04 Pulse Ox 95 03/14/23 14:04 FiO2 Intake & Output 03/14/23 03/14/23 03/15/23 06:59 18:59 06:59 Output Total 510 Balance -510 Output: Urine 510 Other: Voiding Method Indwelling Catheter Indwelling Catheter # Voids 300 - Labs CBC & Chem 7: 03/13/23 07:36 03/13/23 07:36 Labs: Microbiology - Last 24 Hours (Table) 03/08/23 14:45 Blood Culture - Final Blood 03/08/23 14:30 Blood Culture - Final Blood Assessment and Plan Time with Patient: Less than 30
[2023-03-14 22:19] VITALS: RESP 16
[2023-03-15] MEDS: PIPERACILLIN-TAZOBACTAM 3.375 GM in SODIUM CHLORIDE 0.9% 100 ML IVPB SCH ×2 (02:01→10:04)
[2023-03-15] MEDS: KETOROLAC 15 MG/ML 1 ML VIAL IVP SCH ×3 (02:03→12:06)
[2023-03-15] MEDS: ALPRAZolam 0.25 MG TAB PO PRN (05:58)
[2023-03-15 08:08] VITALS: BP 150/59; PULSE 58; TEMP 98.2
[2023-03-15] MEDS: SERTRALINE 50 MG TAB PO SCH (10:04)
[2023-03-15] MEDS: TAMSULOSIN 0.4 MG CAP.ER.24H PO SCH (10:04)
[2023-03-15] MEDS: ENOXAPARIN 40 MG/0.4 ML SYRINGE SQ SCH (10:04)
[2023-03-15] MEDS: atenoloL 25 MG TAB PO SCH (10:04)
[2023-03-15] MEDS: SENNOSIDES 8.6 MG TAB PO SCH (10:10)
[2023-03-15 11:18] LABS: Basophils % (A) 0 %; Eosinophils # (A) 1.2 k/uL (0-0.7); Eosinophils % (A) 9 %; HCT 29.8 % (39.0-53.0); HGB 9.7 gm/dL (13.0-17.5); Lymphocytes # (A) 1.5 k/uL (1.0-4.8); Lymphocytes % (A) 11 %; MCH 31.9 pg (25.0-35.0); MCHC 32.6 g/dL (31.0-37.0); MCV 97.8 fL (80.0-100.0); Monocytes # (A) 0.9 k/uL (0-1.0); Monocytes % (A) 7 %; Neutrophils # (A) 9.7 k/uL (1.3-7.7); Neutrophils % (A) 72 %; Platelet Count 312 k/uL (150-450); RBC 3.04 m/uL (4.30-5.90); RDW 13.3 % (11.5-15.5); WBC 13.6 k/uL (3.8-10.6)
[2023-03-15 11:31] LABS: African American GFR (CKD) 89 (>60 ml/min/1.73 sqM); Anion Gap 5 mmol/L; Blood Urea Nitrogen 22 mg/dL (9-20); Calcium 7.9 mg/dL (8.4-10.2); Carbon Dioxide 23 mmol/L (22-30); Chloride 110 mmol/L (98-107); Glucose 106 mg/dL (74-99); Non-African American GFR(CKD) 77 (>60 ml/min/1.73 sqM); Potassium 3.8 mmol/L (3.5-5.1); Sodium 138 mmol/L (137-145)
--- NOTE | 2023-03-15 13:33 | P.DS ---
Providers Date of admission: 03/10/23 07:50 Expected date of discharge: 03/15/23 Attending physician: Deuce Barney Consults: 03/09/23 09:31 Consult Physician Routine Consulting Provider: Terry Brown Consult Reason/Comments: cellulitis Do you want consulting provider notified?: Yes Primary care physician: [facility] Course: Final diagnosis -Bilateral lower extremity wounds with cellulitis, present on admission with culture showing Citrobacter, Pseudomonas and enterococcus -Acute renal failure secondary to losartan and hydrochlorothiazide resolved -Hyperlipidemia -Urinary retention requiring indwelling Colmenares catheter likely secondary to immobility and gait dysfunction -Hypertension, currently blood pressures are on the lower side and will discontinue lisinopril and make atenolol once daily -Generalized deconditioning with gait dysfunction -Bilateral lower extremity pressure ulcers, stage II with 3 ulcers on the midshin and entire foot on the right, left side showing calf stage II pressure ulcer with improvement in cellulitis, all present on admission -Stage II sacral pressure ulcer, present on admission -Obesity with a BMI of 31.8 -GI prophylaxis -DVT prophylaxis: Lovenox -Full code Discharge Disposition Patient is stable for discharge to [facility] rehab. Patient has received a midline and will Continue antibiotic therapy in the form of IV Zosyn every 8 hours for 2 weeks per ID recommendations and close outpatient follow-up with infectious disease. Continue local wound care to lower extremities by Daniel wrapping from the toes up to the knees. Encouraged elevating lower extremities while at rest. Continue with offloading frequently of the buttock area and position changes every 2 hours. Continue with indwelling Colmenares catheter and trial void in the outpatient setting once more mobile and consider urology follow-up outpatient. Continue Flomax. Repeat labs in 2-3 days of CBC, BMP, magnesium. Follow-up with primary care provider on discharge. Hospital Course Patient is a pleasant 87-year-old male is admitted for bilateral lower extremity cellulitis and wound infection. Has a past medical history of hypertension, hyperlipidemia. Patient has significant cellulitis on the right side with multiple stage II to 3 ulcers extending from the midshin area involving the entire foot on the right side as well as left-sided. Patient is taking Keflex at home without any significant improvement patient was having significant pain and burning sensation. Patient functionality is poor and lives with his . Patient was admitted to the hospital with consult placed to ID and wound cultures. Patient was started on vancomycin and ceftriaxone. Patient had elevated serum creatinine of 1.29 patient is on losartan and hydrochlorothiazide at home as well as atenolol for hypertension. Medications were adjusted as above. The wound cultures reveal citrobacter braakii, pseudomonas aureginosa, enterococcus faecalis. ID had recommended a course of IV zosyn on discharge for 2 weeks and patient received a midline for IV access. Most recent labs showing white count of 13.8, hgb 9.9, BUN 37, creatinine 1.07. Patient denies chest pain, denies shortness of breath, no nausea vomiting or diarrhea. His lungs are clear. He does continue with significant lower extremity edema and he has DANIEL wrap dressings in place to the lower extremities. Recommending using Silvadene cream daily to bilateral lower extremities and then Daniel wrapping and using nonadherent dressing in between the Daniel wrapping and continuing to elevate while at rest. Continue with the medication changes his blood pressure is 112/57, he is afebrile, 94% on room air. He will be discharge to rehab. Please see medication reconciliation for a list of current medications. Thank you for allowing us to participate in the care of this patient. The impression and plan of care has been dictated by Silva Beck, Nurse Practitioner as directed. Dr. Ector MD I have performed a history and examination and MDM of this patient, discussed the same with the dictator, and agree with the dictator's assessment and plan as written ,documented as a scribe. Based on total visit time, I have performed more than 50% of the visit. Patient Condition at Discharge: Fair Plan - Discharge Summary Discharge Rx Participant: No New Discharge Prescriptions: New atenoloL [Tenormin] 25 mg PO DAILY tab Acetaminophen Tab [Tylenol] 650 mg PO Q4HR PRN tab PRN Reason: Fever And/ Or Pain Sennosides [Senokot] 8.6 mg PO BID tab traMADol HCl [Ultram] 50 mg PO QID PRN #4 tab PRN Reason: Analgesia Tamsulosin [Flomax] 0.4 mg PO PC-BRKFST cap Enoxaparin [Lovenox] 40 mg SQ DAILY each Piperacillin-Tazobactam [Zosyn] 3.375 gm IVPB Q8HR 14 Days #42 each Magnesium Hydroxide [Milk of Magnesia] 2,400 mg PO BID PRN ml PRN Reason: Constipation Continue Pravastatin Sodium [Pravachol] 40 mg PO HS Krill Oil/Hyaluronic/Astaxanth [Megared Joint Care Softgel] 353 mg PO DAILY Sertraline HCl [Zoloft] 50 mg PO DAILY Mv-Min/Folic/K1/Lycopen/Lutein [Centrum Silver Men Tablet] 1 tab PO DAILY ALPRAZolam [Xanax] 0.25 mg PO DAILY PRN #2 tab PRN Reason: Anxiety Discontinued Enalapril/Hydrochlorothiazide [Vaseretic 5-12.5 mg] 1 tab PO DAILY atenoloL [Tenormin] 25 mg PO BID Docusate [Colace] 100 mg PO TID Cephalexin [Keflex] 500 mg PO Q8HR Discharge Medication List Pravastatin Sodium [Pravachol] 40 mg PO HS 08/12/15 [History] Krill Oil/Hyaluronic/Astaxanth [Megared Joint Care Softgel] 353 mg PO DAILY 03/08/23 [History] Mv-Min/Folic/K1/Lycopen/Lutein [Centrum Silver Men Tablet] 1 tab PO DAILY 03/08/23 [History] Sertraline HCl [Zoloft] 50 mg PO DAILY 03/08/23 [History] Acetaminophen Tab [Tylenol] 650 mg PO Q4HR PRN tab 03/12/23 [Rx] Enoxaparin [Lovenox] 40 mg SQ DAILY each 03/12/23 [Rx] Magnesium Hydroxide [Milk of Magnesia] 2,400 mg PO BID PRN ml 03/12/23 [Rx] Piperacillin-Tazobactam [Zosyn] 3.375 gm IVPB Q8HR 14 Days #42 each 03/12/23 [Rx] Sennosides [Senokot] 8.6 mg PO BID tab 03/12/23 [Rx] Tamsulosin [Flomax] 0.4 mg PO PC-BRKFST cap 03/12/23 [Rx] atenoloL [Tenormin] 25 mg PO DAILY tab 03/12/23 [Rx] ALPRAZolam [Xanax] 0.25 mg PO DAILY PRN #2 tab 03/15/23 [Rx] traMADol HCl [Ultram] 50 mg PO QID PRN #4 tab 03/15/23 [Rx] Follow up Appointment(s)/Referral(s): Terry Brown MD [STAFF PHYSICIAN] - 1 Week Walt Garcia MD [Primary Care Provider] - 1-2 days Ambulatory/Diagnostic Orders: Basic Metabolic Panel [LAB.AMB] Time Frame: 3 Days, Location: None Selected Complete Blood Count w/diff [LAB.AMB] Time Frame: 2 Days, Location: None Selected Activity/Diet/Wound Care/Special Instructions: Patient will be going to [facility] on discharge Activity as tolerated Patient has received a midline and will Continue antibiotic therapy in the form of IV Zosyn every 8 hours for 2 weeks per ID recommendations and close outpatient follow-up with infectious disease Continue local wound care and apply Silvadene daily to bilateral lower extremities including the toes and continue Daniel wrapping from the toes up to the knees Encouraged elevating lower extremities while at rest Continue with offloading frequently of the buttock area and position changes every 2 hours Follow-up with primary care provider on discharge Repeat labs in 2-3 days of CBC, BMP, magnesium Continue with indwelling Colmenares catheter and trial void in the outpatient setting once more mobile and consider urology follow-up outpatient. Continue Flomax Discharge Disposition: TRANSFER TO SNF/ECF
== END 2023-03-15 14:42 | DRG 603 ==
LOC: EC 14:14 → 4SSUR 18:30 → OBSVTOIN 03-10 07:50
PROVIDERS: ADMIT Hospitalist; ATTEND Hospitalist
DX: L03.115 Cellulitis of right lower limb (principal); N17.8 Other acute kidney failure; L03.116 Cellulitis of left lower limb; E66.9 Obesity, unspecified; E78.5 Hyperlipidemia, unspecified; E87.5 Hyperkalemia; I10 Essential (primary) hypertension; L89.152 Pressure ulcer of sacral region, stage 2; L89.892 Pressure ulcer of other site, stage 2; L97.529 Non-pressure chronic ulcer of other part of left foot with unspecified severity; T46.5X5A Adverse effect of other antihypertensive drugs, initial encounter; T50.2X5A Adverse effect of carbonic-anhydrase inhibitors, benzothiadiazides and other diuretics, initial encounter; B96.5 Pseudomonas (aeruginosa) (mallei) (pseudomallei) as the cause of diseases classified elsewhere; R33.9 Retention of urine, unspecified; B95.2 Enterococcus as the cause of diseases classified elsewhere; R26.9 Unspecified abnormalities of gait and mobility; B96.89 Other specified bacterial agents as the cause of diseases classified elsewhere; Z68.31 Body mass index [BMI] 31.0-31.9, adult; Z79.899 Other long term (current) drug therapy; Z82.49 Family history of ischemic heart disease and other diseases of the circulatory system
CPT/HCPCS: 36410; 36415; 76937; 80048; 80053; 82565; 83605; 83735; 84100; 84484; 85025; 85027; 85610; 85730; 86140; 87040; 87070; 87075; 87077; 87186; 87205; 93005; 94760; 96361; 96365; 96366; 96367; 96375; 99285